=== PATIENT | male | born 1965 | race Caucasian/White ===

== ENCOUNTER 2017-12-24 12:25 | Emergency (ER) | payer BC ==
[2017-12-24 12:50] VITALS: TEMP 98.1; BMI 29.2
--- NOTE | 2017-12-24 14:51 | PDOC ---
History of Present Illness - History of Present Illness Initial Comments: 12/24/17 16:48 Mr. Sorto is a 52 yo male w/ pmh of kidney stones 4 years ago which required surgery for removal who presents with severe left abdominal and flank pain for the past week sent in by PCP for evaluation of kidney stones. He has previously been evaluated by Dr. Olmos outpatient and has 3 known kidney stones that were previously non-obstructing. Mr. Sorto has continued to be able to make urine although he reports the pain has been severe in the aforementioned locations. He reports this feels identical to his previous kidney stones. The patient denies chest pain, shortness of breath, headache and dizziness. Denies fever, chills, nausea, vomit, diarrhea and constipation. Denies frequency , urgency and hematuria. <Gunner Eden - Last Filed: 12/24/17 19:04> <Elida Shin - Last Filed: 12/24/17 19:23> - General Chief Complaint: Pain Stated Complaint: FLANK PAIN PCP SENT Time Seen by Provider: 12/24/17 14:51 Past History - Past Medical History COPD: No HTN: Yes Kidney Stones: Yes - Suicide/Smoking/Psychosocial Hx Smoking Status: No Smoking History: Former smoker Have you smoked in the past 12 months: No Number of Cigarettes Smoked Daily: 0 Information on smoking cessation initiated: No Hx Alcohol Use: Yes Drug/Substance Use Hx: No Substance Use Type: Alcohol Hx Substance Use Treatment: No <Gunner Eden - Last Filed: 12/24/17 19:04> <Elida Shin - Last Filed: 12/24/17 19:23> - Past Medical History Allergies/Adverse Reactions: Allergies Allergy/AdvReac Type Severity Reaction Status Date / Time No Known Allergies Allergy Verified 12/24/17 12:47 Home Medications: Ambulatory Orders Aspirin [ASA -] 81 mg PO PRN PRN 09/03/16 Metoprolol Succinate [Toprol XL -] 25 mg PO DAILY #30 tab.sr.24h 09/03/16 Oxycodone HCl/Acetaminophen [Percocet 5-325 mg Tablet] 1 tab PO Q6H PRN #20 tablet MDD 4 12/24/17 Review of Systems - Review of Systems Comments:: 12/24/17 16:53 GENERAL/CONSTITUTIONAL: No fever or chills. No weakness. HEAD, EYES, EARS, NOSE AND THROAT: No change in vision. No ear pain or discharge. No sore throat. CARDIOVASCULAR: No chest pain or shortness of breath RESPIRATORY: No cough, wheezing, or hemoptysis. GASTROINTESTINAL: +Abdominal and flank pain for the last week as described. No nausea, vomiting, diarrhea or constipation. GENITOURINARY: +Dysuria, no frequency or change in urination. MUSCULOSKELETAL: No joint or muscle swelling or pain. No neck or back pain. SKIN: No rash NEUROLOGIC: No headache, vertigo, loss of consciousness, or change in strength/ sensation. ENDOCRINE: No increased thirst. No abnormal weight change HEMATOLOGIC/LYMPHATIC: No anemia, easy bleeding, or history of blood clots. ALLERGIC/IMMUNOLOGIC: No hives or skin allergy. <Gunner Eden - Last Filed: 12/24/17 19:04> *Physical Exam - Vital Signs Last Vital Signs Temp Pulse Resp BP Pulse Ox 98.1 F 88 18 163/102 100 12/24/17 12:48 12/24/17 12:48 12/24/17 12:48 12/24/17 12:48 12/24/17 12:48 - Physical Exam Comments: 12/24/17 16:54 GENERAL: Awake, alert, and fully oriented, in no acute distress HEAD: No signs of trauma, normocephalic, atraumatic EYES: PERRLA, EOMI, sclera anicteric, conjunctiva clear ENT: Auricles normal inspection, hearing grossly normal, nares patent, oropharynx clear without exudates. Moist mucosa NECK: Normal ROM, supple, no lymphadenopathy, JVD, or masses LUNGS: No distress, speaks full sentences, clear to auscultation bilaterally HEART: Regular rate and rhythm, normal S1 and S2, no murmurs, rubs or gallops, peripheral pulses normal and equal bilaterally. ABDOMEN: +Acutely TTP on left flank and lower abdomen. Soft, normoactive bowel sounds. No guarding, no rebound. No masses EXTREMITIES: Normal inspection, Normal range of motion, no edema. No clubbing or cyanosis. NEUROLOGICAL: Cranial nerves II through XII grossly intact. Normal speech, normal gait, no focal sensorimotor deficits SKIN: Warm, Dry, normal turgor, no rashes or lesions noted. <Gunner Eden - Last Filed: 12/24/17 19:04> - Vital Signs Last Vital Signs Temp Pulse Resp BP Pulse Ox 98.1 F 88 18 163/102 100 12/24/17 12:48 12/24/17 12:48 12/24/17 12:48 12/24/17 12:48 12/24/17 12:48 <Elida Shin - Last Filed: 12/24/17 19:23> ED Treatment Course - LABORATORY CBC & Chemistry Diagram: 12/24/17 15:25 12/24/17 16:30 <Gunner Eden - Last Filed: 12/24/17 19:04> - LABORATORY CBC & Chemistry Diagram: 12/24/17 15:25 12/24/17 16:30 - ADDITIONAL ORDERS Additional order review: Laboratory Results 12/24/17 12/24/17 12/24/17 16:30 16:12 15:25 Sodium 140 Cancelled Potassium 4.1 D Cancelled Chloride 108 H Cancelled Carbon Dioxide 27 Cancelled Anion Gap 5 L Cancelled BUN 17 D Cancelled Creatinine 1.1 D Cancelled Creat Clearance w eGFR > 60 Cancelled Random Glucose 102 Cancelled Calcium 8.7 Cancelled Total Bilirubin 1.2 H D Cancelled AST 29 D Cancelled ALT 49 Cancelled Alkaline Phosphatase 67 Cancelled Total Protein 7.5 Cancelled Albumin 3.7 Cancelled Urine Color Yellow Urine Appearance Clear Urine pH 5.0 D Ur Specific Clemons 1.018 Urine Protein Negative Urine Glucose (UA) Negative Urine Ketones Negative Urine Blood Negative Urine Nitrite Negative Urine Bilirubin Negative Urine Urobilinogen Negative Ur Leukocyte Esterase Negative 12/24/17 15:25 RBC 4.73 D MCV 94.3 MCHC 35.7 RDW 12.9 MPV 7.3 L Neutrophils % 71.7 Lymphocytes % 16.0 D Monocytes % 11.0 H Eosinophils % 0.6 D Basophils % 0.7 D - Medications Given in the ED: ED Medications Discontinued Medications Generic Name Dose Route Start Last Admin Trade Name Freq PRN Reason Stop Dose Admin Sodium Chloride 1,000 mls @ 1,000 mls/hr 12/24/17 15:11 12/24/17 16:12 Normal Saline - IV 12/24/17 16:10 1,000 mls/hr ASDIR STA Administration Ketorolac Tromethamine 15 mg 12/24/17 15:13 12/24/17 16:10 Toradol Injection - IVPUSH 12/24/17 15:14 15 mg ONCE ONE Administration Morphine Sulfate 2 mg 12/24/17 15:10 12/24/17 16:12 Morphine Injection - IVPUSH 12/24/17 15:11 Not Given ONCE ONE Morphine Sulfate 4 mg 12/24/17 16:01 12/24/17 16:06 Morphine Injection - IVPUSH 12/24/17 16:02 4 mg ONCE ONE Administration Morphine Sulfate 4 mg 12/24/17 17:19 12/24/17 17:15 Morphine Injection - IVPUSH 12/24/17 17:20 4 mg ONCE ONE Administration <Elida Shin - Last Filed: 12/24/17 19:23> Medical Decision Making - Medical Decision Making 12/24/17 19:04 Mr. Sorto is a 52 yo male w/ pmh as described who presents for evaluation of left lower quadrant pain with associated flank pain. CT spiral ordered for evaluation r/o obstructing kidney stone. Small bilateral nonobstructing stones noted in renal poles (biggest 2mm). No hydronephrosis or obstruction noted. Patient reports some resolution of pain. Labs non-concerning as below. Discharging patient to home w/ pain control and instructions to f/u w/ Urologist and PCP later this week. Patient verbalized understanding and agreement of plan and will comply. Laboratory Results - last 24 hr 12/24/17 12/24/17 12/24/17 15:25 15:25 16:12 WBC 10.1 H D RBC 4.73 D Hgb 15.9 D Hct 44.6 D MCV 94.3 MCH 33.6 MCHC 35.7 RDW 12.9 Plt Count 337 D MPV 7.3 L Neutrophils % 71.7 Lymphocytes % 16.0 D Monocytes % 11.0 H Eosinophils % 0.6 D Basophils % 0.7 D Sodium Cancelled Potassium Cancelled Chloride Cancelled Carbon Dioxide Cancelled Anion Gap Cancelled BUN Cancelled Creatinine Cancelled Creat Clearance w eGFR Cancelled Random Glucose Cancelled Calcium Cancelled Total Bilirubin Cancelled AST Cancelled ALT Cancelled Alkaline Phosphatase Cancelled Total Protein Cancelled Albumin Cancelled Urine Color Yellow Urine Appearance Clear Urine pH 5.0 D Ur Specific Clemons 1.018 Urine Protein Negative Urine Glucose (UA) Negative Urine Ketones Negative Urine Blood Negative Urine Nitrite Negative Urine Bilirubin Negative Urine Urobilinogen Negative Ur Leukocyte Esterase Negative 12/24/17 16:30 WBC RBC Hgb Hct MCV MCH MCHC RDW Plt Count MPV Neutrophils % Lymphocytes % Monocytes % Eosinophils % Basophils % Sodium 140 Potassium 4.1 D Chloride 108 H Carbon Dioxide 27 Anion Gap 5 L BUN 17 D Creatinine 1.1 D Creat Clearance w eGFR > 60 Random Glucose 102 Calcium 8.7 Total Bilirubin 1.2 H D AST 29 D ALT 49 Alkaline Phosphatase 67 Total Protein 7.5 Albumin 3.7 Urine Color Urine Appearance Urine pH Ur Specific Clemons Urine Protein Urine Glucose (UA) Urine Ketones Urine Blood Urine Nitrite Urine Bilirubin Urine Urobilinogen Ur Leukocyte Esterase <uGnner Eden - Last Filed: 12/24/17 19:04> *DC/Admit/Observation/Transfer <Gunner Eden - Last Filed: 12/24/17 19:04> - Discharge Dispostion Admit: No <Elida Shin - Last Filed: 12/24/17 19:23> Diagnosis at time of Disposition: Nephrolithiasis - Discharge Dispostion Disposition: HOME Condition at time of disposition: Improved - Prescriptions Prescriptions: Oxycodone HCl/Acetaminophen [Percocet 5-325 mg Tablet] 1 tab PO Q6H PRN #20 tablet MDD 4 PRN Reason: Pain - Referrals Referrals: Linda Peters MD [Primary Care Provider] - - Patient Instructions Printed Discharge Instructions: DI for Kidney Stones Additional Instructions: A prescription has been called in to your pharmacy for pain control. Please take medication as proscribed for pain. Please return if any return or increase in pain, fever, chills, inability to pee, or other concerning symptoms. Follow- up with Primary care provider and urologist tomorrow as discussed. - Post Discharge Activity Forms/Work/School Notes: Back to Work
[2017-12-24] MEDS ORDERED: morphine CARPU-JECT 2 MG/1 ML DISP.SYRIN IVPUSH ONE (15:10)
[2017-12-24] MEDS ORDERED: SODIUM CHLORIDE 1,000 ML IV STA (15:11)
[2017-12-24] MEDS ORDERED: KETOROLAC TROMETHAMINE 15 MG/ML VIAL IVPUSH ONE (15:13)
[2017-12-24 15:38] LABS: BASO % 0.7 % (0-2.0); EOS % 0.6 % (0-4.5); HEMATOCRIT 44.6 % (35.4-49); HEMOGLOBIN 15.9 GM/dL (11.7-16.9); MCH 33.6 pg (25.7-33.7); MCHC 35.7 g/dl (32.0-35.9); MEAN CELL VOLUME 94.3 fl (80-96); MEAN PLT VOLUME 7.3 fl (7.5-11.1); NEUT % 71.7 % (42.8-82.8); PLATELET COUNT 337 K/MM3 (134-434); RBC 4.73 M/mm3 (4.00-5.60); RDW 12.9 % (11.9-15.9); WHITE BLOOD COUNT 10.1 K/mm3 (4.0-10.0)
[2017-12-24] MEDS ORDERED: KETOROLAC TROMETHAMINE 15 MG/ML VIAL ONE (16:01)
[2017-12-24] MEDS ORDERED: morphine CARPU-JECT 4 MG/1 ML DISP.SYRIN IVPUSH ONE ×2 (16:01→17:19)
[2017-12-24] MEDS ORDERED: morphine SULFATE 4 MG/ML VIAL ONE ×2 (16:01→17:09)
[2017-12-24 16:35] LABS: URINE APPEARANCE CLEAR; URINE BILIRUBIN NEGATIVE (<2.0 mg/dL); URINE BLOOD NEGATIVE (NEGATIVE); URINE COLOR YELLOW; URINE GLUCOSE (UA) NEGATIVE (NEGATIVE); URINE KETONE NEGATIVE (NEGATIVE); URINE LEUK ESTERASE NEGATIVE (NEGATIVE); URINE NITRITE NEGATIVE (NEGATIVE); URINE PROTEIN NEGATIVE (NEGATIVE); URINE UROBILINOGEN NEGATIVE mg/dL (0.2-1.0)
[2017-12-24 17:22] LABS: ALBUMIN 3.7 g/dl (3.4-5.0); ALK PHOS 67 U/L (45-117); ANION GAP 5 (8-16); BILIRUBIN,TOTAL 1.2 mg/dL (0.2-1.0); BLOOD UREA NITROGEN 17 mg/dL (7-18); CALCIUM 8.7 mg/dL (8.5-10.1); CHLORIDE 108 mmol/L (98-107); CO2 27 mmol/L (21-32); CREATININE 1.1 mg/dL (0.7-1.3); GLUCOSE,RANDOM 102 mg/dL (74-106); POTASSIUM 4.1 mmol/L (3.5-5.1); SGOT/AST 29 U/L (15-37); SGPT/ALT 49 U/L (12-78); SODIUM 140 mmol/L (136-145); TOT PROT 7.5 g/dl (6.4-8.2)
--- NOTE | 2017-12-24 18:27 | PDOC ---
Attending Attestation - Resident Resident Name: Gunner Eden - ED Attending Attestation I have performed the following: I have examined & evaluated the patient, The case was reviewed & discussed with the resident, I agree w/resident's findings & plan, Exceptions are as noted - HPI HPI: 12/24/17 18:24 52-year-old male history of renal stones here today complaining of left flank pain and left upper quadrant pain. Pain is similar to previous kidney stones last history of stones was years ago. Patient was seen on [facility] office last week and told that he had 3 renal calculi for which she was going to receive lithotripsy denies fevers chills no dysuria no change to bowel such as constipation or diarrhea no nausea no vomiting pain is severe no moderating factors denies any muscle skeletal back strain - Physicial Exam PE: 12/24/17 18:25 Awake alert no acute distress lungs are clear bilaterally heart is regular without any murmurs rubs or gallops abdomen is soft does have left lower quadrant tenderness to palpation no rebound no guarding left CVA tenderness skin is warm and dry no peripheral edema neuro alert and oriented 3 moving all 4 extremities - Medical Decision Making 12/24/17 18:25 Differential includes UTI, pyelonephritis, renal colic, diverticulitis plan CT abdomen and pelvis UA cultures labs and pain control will discuss with patient' s primary DrPauline Peters and Dr. luis silva Patient still having pain requiring IV pain medication. CT shows renal calculi no ureteral calculi urine is negative for blood or infection labs are unremarkable will discuss with Dr. Roberts
[2017-12-24 19:51] VITALS: BP 150/92; PULSE 80
== END 2017-12-24 19:52 | disposition home or self-care (01) ==
LOC: JER 12:25
PROC: 3E0337Z Introduction of Electrolytic and Water Balance Substance into Peripheral Vein, Percutaneous Approach (ICD-10-PCS; principal; 2017-12-24)
PROC: 3E033NZ Introduction of Analgesics, Hypnotics, Sedatives into Peripheral Vein, Percutaneous Approach (ICD-10-PCS; 2017-12-24)
PROC: 3E033NZ Introduction of Analgesics, Hypnotics, Sedatives into Peripheral Vein, Percutaneous Approach (ICD-10-PCS; 2017-12-24)
PROC: 3E0333Z Introduction of Anti-inflammatory into Peripheral Vein, Percutaneous Approach (ICD-10-PCS; 2017-12-24)
DX: N20.0 Calculus of kidney (principal); Z87.442 Personal history of urinary calculi; I10 Essential (primary) hypertension; Z87.891 Personal history of nicotine dependence
CPT/HCPCS: 36415; 74176; 80053; 81003; 85025; 87086; 99282-25; J7030

== ENCOUNTER 2018-01-15 01:49 | Observation (INO) | payer BC ==
--- NOTE | 2018-01-15 01:53 | PDOC ---
History of Present Illness - General Chief Complaint: Chest Pain Stated Complaint: CHEST PAIN Time Seen by Provider: 01/15/18 01:50 - History of Present Illness Initial Comments: 01/15/18 02:23 This 52-year-old man with a history of HTN/HLD /kidney stones/gout presents with a few hour history of left-sided chest pain. Pain described as intermittent in severity but present constantly and has a mild pulsatile quality when severe. No previous history of this pain. Patient states that he had very mild dull pain in the left side of his chest when he arrived home from work at 6:30 PM last night. No treatment was taken; patient retired at usual hour but was awakened about 2 hours prior to presentation with much more severe pain in the same area. No recent cough or febrile illness. No history of nausea/diaphoresis/shortness of breath. He has intermittent increase in pain with deep breathing ( especially when patient has lying flat); also occasionally radiating to mid upper back. No recent trauma to chest or increase in strenuous activity. No change in diet or recent nausea/vomiting/ diarrhea. No flank pain/dysuria/hematuria. Risk factors for CAD: Positive for HTN/HLD/family history (mother). No smoking/ DM No recent immobility/surgeries/malignancy/lower extremity pain or edema;No hx thromboembolic disease in pt or family PMH HTN-diagnosed 3-4 years ago; taking med as prescribed HLD-diet controlled Recent episode of kidney stones(approximately 3 weeks ago) No recent gout Right sided cataract surgery September, No known ALLERGIES Patient never smoked; ethanol occasionally (beer); denies any other drug use Patient's PMD is Dr. 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 Past History - Past Medical History Allergies/Adverse Reactions: Allergies Allergy/AdvReac Type Severity Reaction Status Date / Time No Known Allergies Allergy Verified 01/15/18 01:50 Home Medications: Ambulatory Orders Nebivolol HCl [Bystolic] 10 mg PO DAILY 01/15/18 COPD: No HTN: Yes Kidney Stones: Yes - Suicide/Smoking/Psychosocial Hx Smoking Status: No Smoking History: Former smoker Have you smoked in the past 12 months: No Number of Cigarettes Smoked Daily: 0 Hx Alcohol Use: Yes Drug/Substance Use Hx: No Substance Use Type: Alcohol Hx Substance Use Treatment: No Review of Systems - Review of Systems Able to Perform ROS?: Yes Comments:: 12 point review of systems is negative except for what is noted in the history of present illness *Physical Exam - Vital Signs Last Vital Signs Temp Pulse Resp BP Pulse Ox 97.8 F 65 18 146/77 97 01/15/18 04:13 01/15/18 04:13 01/15/18 04:19 01/15/18 04:13 01/15/18 04:44 - Physical Exam Comments: GENERAL: Adult male, in mild distress secondary to left-sided chest pain; blood pressure 192/105, HR 78/min, pulse ox 100% on room air,RR20/min HEAD: Normal with no signs of trauma. EYES: PERRLA, EOMI, sclera anicteric, conjunctiva clear. ENT: Ears normal, nares patent, oropharynx clear without exudates. Dry mucous membranes. NECK: Normal range of motion, supple without lymphadenopathy, JVD, or masses. LUNGS: Breath sounds equal, clear to auscultation bilaterally. No wheezes, rubs or crackles. CHEST WALL: No tenderness/crepitus/step offs HEART:Regular rate and rhythm, normal S1 and S2 without murmur, rub or gallop. ABDOMEN:.normal bowel sounds No guarding,tenderness or rebound.No masses No distention. EXTREMITIES: Normal range of motion, no edema. No clubbing or cyanosis. No erythema, or tenderness. NEUROLOGICAL: Cranial nerves II through XII grossly intact. Normal speech. No focal neurological deficits. MUSCULOSKELETAL: Back non-tender to palpation, no CVA tenderness SKIN: Warm, Dry, normal turgor, no rashes or lesions noted. 12-lead electrocardiogram is performed and interpreted by me: Normal sinus rhythm at 72 bpm; minimal voltage criteria for LVH; no acute ST or T-wave abnormalities evident. Tracing is essentially unchanged from previous EKG dated 11/03/13 Portable chest x-ray shows no evidence of acute infiltrate/CHF/effusion; cardiac silhouette/mediastinum normal Heart Score/ECG Review - History History: Moderately suspicious - Electrocardiogram EKG: Normal - Age Age: 45-65 - Risk Factors Risk Factors Heart Score: Yes Hx Hypercholesterolemia, Yes Hx Hypertension, Yes Positive family hx of cardiac disease Based on the list above the patient has:: >/=3 risk factors or Hx atherosclerotic disease - Troponin Troponin: </= normal limit - Score Heart Score - Total: 4 ED Treatment Course - LABORATORY CBC & Chemistry Diagram: 01/15/18 01:51 01/15/18 01:51 - ADDITIONAL ORDERS Additional order review: Laboratory Results 01/15/18 01/15/18 01:51 01:51 PT with INR 12.30 INR 1.09 Sodium 137 Potassium 4.3 Chloride 102 Carbon Dioxide 25 Anion Gap 10 BUN 15 Creatinine 1.1 Creat Clearance w eGFR > 60 Random Glucose 107 H Calcium 9.3 Total Bilirubin 1.3 H AST 32 ALT 51 Alkaline Phosphatase 72 Creatine Kinase 128 Troponin I < 0.02 Total Protein 8.3 H Albumin 4.1 01/15/18 01:51 RBC 4.60 MCV 94.4 MCHC 35.6 RDW 12.4 MPV 7.0 L Neutrophils % 63.5 Lymphocytes % 22.2 D Monocytes % 11.6 H Eosinophils % 1.5 D Basophils % 1.2 - RADIOLOGY Radiology Studies Ordered: Category Date Time Status CHEST X-RAY PORTABLE* [RAD] Stat Radiology 01/15/18 02:01 Taken - Medications Given in the ED: ED Medications Discontinued Medications Generic Name Dose Route Start Last Admin Trade Name Freq PRN Reason Stop Dose Admin Famotidine 20 mg in 12 mls @ 144 mls/hr 01/15/18 03:06 01/15/18 03:10 Pepcid 20 Mg/12 Ml Push IVPB 01/15/18 03:10 144 mls/hr ONCE ONE Administration Ketorolac Tromethamine 30 mg 01/15/18 03:19 01/15/18 03:24 Toradol Injection - IVPUSH 01/15/18 03:20 30 mg ONCE ONE Administration Morphine Sulfate 4 mg 01/15/18 02:09 01/15/18 02:18 Morphine Injection - IVPUSH 01/15/18 02:10 4 mg ONCE ONE Administration Nitroglycerin 0.4 mg 01/15/18 03:39 01/15/18 03:40 Nitrostat - SL 01/15/18 03:40 0.4 mg ONCE ONE Administration Progress Note - Progress Note Progress Note: This 52-year-old man with a history of hypertension/hyperlipidemia/family history of cardiac disease presents with several hour history of left-sided chest pain as noted above. Exam as noted CBC/INR/chemistry profile with troponin sent. Patient received 2 L/min" to nasal cannula Patient received 4 mg morphine IV with some relief but ultimately had recurrence of pain. Toradol 30 mg IV/nitroglycerin 0.4 mg SL/Pepcid 20 mg IV were also administered without significant relief of his pain. Laboratory evaluation was essentially normal with no elevation of troponin Medical Decision Making - Medical Decision Making 01/15/18 04:[address] Arnold of [facility] service: Patient will be admitted to telemetry observation status for chest pain/rule out myocardial infarction *DC/Admit/Observation/Transfer Diagnosis at time of Disposition: Chest pain Qualifiers: Chest pain type: precordial pain Qualified Code(s): R07.2 - Precordial pain - Discharge Dispostion Condition at time of disposition: Guarded Admit: Yes Decision to Admit order Date/Time: Decision to Admit Order Category Date Time Status Decision to Admit to Hospital Routine Admission 01/15/18 04:14 Active - Referrals - Patient Instructions - Post Discharge Activity
[2018-01-15] MEDS ORDERED: morphine CARPU-JECT 4 MG/1 ML DISP.SYRIN IVPUSH ONE (02:09)
[2018-01-15 02:26] VITALS: BMI 29.2
[2018-01-15 02:49] LABS: BASO % 1.2 % (0-2.0); EOS % 1.5 % (0-4.5); HEMATOCRIT 43.4 % (35.4-49); HEMOGLOBIN 15.4 GM/dL (11.7-16.9); LYMPH % 22.2 % (8-40); MCH 33.6 pg (25.7-33.7); MCHC 35.6 g/dl (32.0-35.9); MEAN CELL VOLUME 94.4 fl (80-96); MONO % 11.6 % (3.8-10.2); NEUT % 63.5 % (42.8-82.8); PLATELET COUNT 293 K/MM3 (134-434); RDW 12.4 % (11.9-15.9)
[2018-01-15 03:02] LABS: INR 1.09 (0.82-1.09); PROTHROMBIN TIME (PATIENT) 12.3 SEC (9.7-13.0)
[2018-01-15] MEDS ORDERED: FAMOTIDINE 20 MG/50 ML IVPB 20 MG/50 ML MG IVPB ONE (03:06)
[2018-01-15] MEDS ORDERED: FAMOTIDINE IV 20 MG/12 ML VIAL IVPB ONE (03:06)
[2018-01-15] MEDS ORDERED: KETOROLAC TROMETHAMINE 30 MG/1 ML VIAL IVPUSH ONE ×3 (03:19→18:45)
[2018-01-15] MEDS ORDERED: KETOROLAC TROMETHAMINE 30 MG/1 ML VIAL ONE (03:20)
[2018-01-15 03:26] LABS: ALBUMIN 4.1 g/dl (3.4-5.0); ANION GAP 10 (8-16); BILIRUBIN,TOTAL 1.3 mg/dL (0.2-1.0); BLOOD UREA NITROGEN 15 mg/dL (7-18); CALCIUM 9.3 mg/dL (8.5-10.1); CHLORIDE 102 mmol/L (98-107); CO2 25 mmol/L (21-32); CREATININE 1.1 mg/dL (0.7-1.3); GLUCOSE,RANDOM 107 mg/dL (74-106); POTASSIUM 4.3 mmol/L (3.5-5.1); SGOT/AST 32 U/L (15-37); SGPT/ALT 51 U/L (12-78); SODIUM 137 mmol/L (136-145); TOT PROT 8.3 g/dl (6.4-8.2)
[2018-01-15 03:28] LABS: ALK PHOS 72 U/L (45-117)
[2018-01-15] MEDS ORDERED: NITROGLYCERIN SUBLINGUAL 1/150 0.4 MG TAB SL ONE (03:39)
[2018-01-15] MEDS ORDERED: NITROGLYCERIN SUBLINGUAL 1/150 0.4 MG TAB ONE (03:39)
[2018-01-15 08:36] LABS: CHOLESTEROL 197 mg/dl; HDL CHOLESTEROL 39 mg/dl (29-89); LDL CHOLESTEROL (ONLY DFH) 106 mg/dl; TRIGLYCERIDES 260 mg/dl (35-160)
--- NOTE | 2018-01-15 08:58 | HP ---
CHIEF COMPLAINT: left sided chest pain PCP: Dr Peters HISTORY OF PRESENT ILLNESS: patient is a 52 y/o male with a past medical history of hypertension, diet controlled hyperlipidemia, and renal calculi. patient reports yesterday evening he was asleep and awakened by a squeezing sensation to the left side of his chest. Patient report the chest discomfort was unresolved with movement and was persistent throughout the evening. He reports the chest discomfort was unrelieved and was intermittent. Patient denies any shortness of breath or syncopal episode. 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 with at home Smoking:none Alcohol:none Drugs: none Family History: mother-->, lung CA, angina father-->, cancer (unknown) Allergies No Known Allergies Allergy (Verified 01/15/18 01:50) HOME MEDICATIONS: Home Medications Medication Instructions Recorded Nebivolol HCl [Bystolic] 10 mg PO DAILY 01/15/18 REVIEW OF SYSTEMS CONSTITUTIONAL: Absent: fever, chills, diaphoresis, generalized weakness, malaise, loss of appetite, weight change HEENT: Absent: rhinorrhea, nasal congestion, throat pain, throat swelling, difficulty swallowing, mouth swelling, ear pain, eye pain, visual changes CARDIOVASCULAR: Present: chest pain Absent: syncope, palpitations, irregular heart rate, lightheadedness, peripheral edema RESPIRATORY: Absent: cough, shortness of breath, dyspnea with exertion, orthopnea, wheezing, stridor, hemoptysis GASTROINTESTINAL: Absent: abdominal pain, abdominal distension, nausea, vomiting, diarrhea, constipation, melena, hematochezia GENITOURINARY: Absent: dysuria, frequency, urgency, hesitancy, hematuria, flank pain, genital pain MUSCULOSKELETAL: Absent: myalgia, arthralgia, joint swelling, back pain, neck pain SKIN: Absent: rash, itching, pallor HEMATOLOGIC/IMMUNOLOGIC: Absent: easy bleeding, easy bruising, lymphadenopathy, frequent infections ENDOCRINE: Absent: unexplained weight gain, unexplained weight loss, heat intolerance, cold intolerance NEUROLOGIC: Absent: headache, focal weakness or paresthesias, dizziness, unsteady gait, seizure, mental status changes, bladder or bowel incontinence PSYCHIATRIC: Absent: anxiety, depression, suicidal or homicidal ideation, hallucinations. PHYSICAL EXAMINATION Vital Signs - 24 hr 01/15/18 01/15/18 01/15/18 02:19 02:28 02:38 Temperature 97.9 F Pulse Rate 78 Pulse Rate [ 78 71 Left] Respiratory 20 20 18 Rate Blood Pressure 192/105 Blood Pressure 165/98 140/94 [Left] O2 Sat by Pulse 100 99 99 Oximetry (%) 01/15/18 01/15/18 01/15/18 04:13 04:19 04:44 Temperature 97.8 F Pulse Rate 65 Pulse Rate [ Left] Respiratory 19 18 Rate Blood Pressure 146/77 Blood Pressure [Left] O2 Sat by Pulse 99 97 Oximetry (%) 01/15/18 01/15/18 07:44 07:45 Temperature Pulse Rate 68 Pulse Rate [ Left] Respiratory 16 16 Rate Blood Pressure Blood Pressure [Left] O2 Sat by Pulse 98 Oximetry (%) GENERAL: Awake, alert, and fully oriented, in no acute distress. HEAD: Normal with no signs of trauma. EYES: Pupils equal, round and reactive to light, extraocular movements intact, sclera anicteric, conjunctiva clear. No lid lag. EARS, NOSE, THROAT: Ears normal, nares patent, oropharynx clear without exudates. Moist mucous membranes. NECK: Normal range of motion, supple without lymphadenopathy, JVD, or masses. LUNGS: Breath sounds equal, clear to auscultation bilaterally. No wheezes, and no crackles. No accessory muscle use. HEART: Regular rate and rhythm, normal S1 and S2 without murmur, rub or gallop. ABDOMEN: Soft, nontender, not distended, normoactive bowel sounds, no guarding, no rebound, no masses. No hepatomegaly or splenomegaly. MUSCULOSKELETAL: Normal range of motion at all joints. No bony deformities or tenderness. No CVA tenderness. UPPER EXTREMITIES: 2+ pulses, warm, well-perfused. No cyanosis. No clubbing. No peripheral edema. LOWER EXTREMITIES: 2+ pulses, warm, well-perfused. No calf tenderness. No peripheral edema. NEUROLOGICAL: Cranial nerves II-XII intact. Normal speech. Normal gait. PSYCHIATRIC: Cooperative. Good eye contact. Appropriate mood and affect. SKIN: Warm, dry, normal turgor, no rashes or lesions noted, normal capillary refill. Laboratory Results - last 24 hr 01/15/18 01/15/18 01/15/18 01:51 01:51 01:51 WBC 8.0 RBC 4.60 Hgb 15.4 Hct 43.4 MCV 94.4 MCH 33.6 MCHC 35.6 RDW 12.4 Plt Count 293 MPV 7.0 L Neutrophils % 63.5 Lymphocytes % 22.2 D Monocytes % 11.6 H Eosinophils % 1.5 D Basophils % 1.2 PT with INR 12.30 INR 1.09 Sodium 137 Potassium 4.3 Chloride 102 Carbon Dioxide 25 Anion Gap 10 BUN 15 Creatinine 1.1 Creat Clearance w eGFR > 60 Random Glucose 107 H Calcium 9.3 Magnesium Total Bilirubin 1.3 H AST 32 ALT 51 Alkaline Phosphatase 72 Creatine Kinase 128 Troponin I < 0.02 Total Protein 8.3 H Albumin 4.1 Triglycerides Cholesterol Total LDL Cholesterol HDL Cholesterol 01/15/18 01/15/18 07:35 07:35 WBC RBC Hgb Hct MCV MCH MCHC RDW Plt Count MPV Neutrophils % Lymphocytes % Monocytes % Eosinophils % Basophils % PT with INR INR Sodium Potassium Chloride Carbon Dioxide Anion Gap BUN Creatinine Creat Clearance w eGFR Random Glucose Calcium Magnesium 1.9 Total Bilirubin AST ALT Alkaline Phosphatase Creatine Kinase Troponin I Total Protein Albumin Triglycerides 260 H Cholesterol 197 Total LDL Cholesterol 106 HDL Cholesterol 39 ASSESSMENT/PLAN: 1) cardiovascular chest pain r/o acs -troponin x 2 wnl, pending 3rd, continous telemetry monitoring - pt reports chest discomfort during exam, he report the discomfort as a "grabbing" sensation to the his chest, discomfort is not reproducible upon exam , nitro 1/2 inch ordered w/asa 325mg - continue asa 81mg daily - appreciate cardiology input message left with litigation legal secretary to return phone call. hypertension - b/p slightly above goal 154/83, ntg ordered, strict monitoring q4h hyperlipidemia - diet controlled, lipid profile noted f/e/n - low sodium, cholesterol diet ppx - oob dispo: pt requires observation telemetry Visit type - Emergency Visit Emergency Visit: Yes ED Registration Date: 01/15/18 Care time: The patient presented to the Emergency Department on the above date and was hospitalized for further evaluation of their emergent condition. - New Patient This patient is new to me today: Yes Date on this admission: 05/01/18 - Critical Care Critical Care patient: No Hospitalist Screening - Colonoscopy Questionnaire Colonoscopy Questionnaire: Colonoscopy Questionnaire - Patient: 50 - 75 years old and never had a screening colonoscopy: No History of colon or rectal polyps, or CA: No History of IBD, Crohn's disease or UC: No History of abdominal radiation therapy as a child: No - Relative: 1 with colon or rectal CA, or polyps at age 60 or younger: No Colon or rectal CA diagnosed at age 45 or younger: No Multiple relatives with colon or rectal CA: No - Outcome: Screening Result: Negative Screen
[2018-01-15] MEDS ORDERED: ASPIRIN 325 MG TABLET PO ONE (09:45)
[2018-01-15] MEDS ORDERED: NITROGLYCERIN 2% OINTMENT - 1GM PACKET TD ONE (09:45)
[2018-01-15] MEDS ORDERED: ASPIRIN 81 MG CHEWABLE TABLETS PO SCH (10:00)
[2018-01-15] MEDS: NEBIVOLOL 10 MG TABLET (FP) PO SCH (12:15)
--- NOTE | 2018-01-15 12:53 | EKG ---
Test Reason : Blood Pressure : / mmHG Vent. Rate : 066 BPM Atrial Rate : 066 BPM P-R Int : 154 ms QRS Dur : 084 ms QT Int : 408 ms P-R-T Axes : 020 -03 001 degrees QTc Int : 427 ms NORMAL SINUS RHYTHM MINIMAL VOLTAGE CRITERIA FOR LVH, MAY BE NORMAL VARIANT BORDERLINE ECG WHEN COMPARED WITH ECG OF 18-MAR-2011 21:08, NO SIGNIFICANT CHANGE WAS FOUND Confirmed by Brandon Sebastian ([id number]) on 01/15/2018 12:52:51 PM Referred By: Confirmed By:Brandon Sebastian
--- NOTE | 2018-01-15 13:06 | CON.CARD ---
Consult Consult Specialty:: Cardiology Referred by:: Hospitalist Reason for Consultation:: Cardiac evaluation - History of Present Illness Chief Complaint: Chest pain History of Present Illness: Patient is a 52 year old male with underlying history of hypertension who presents with sudden onset of left sided chest pain described as sharp and also back pain. He denies shortness of breath or palpitations. He denies paroxysmal nocturnal dyspnea or orthopnea. He denies fever or chills. He denies cough or expectorations. He denies nausea, vomiting, diarrhea or abdominal pain. He denies headache or lightheadedness. Denies syncope. - History Source History Provided By: Patient, Medical Record - Past Medical History Cardio/Vascular: Yes: HTN Renal/: Yes: Renal Calculi - Past Surgical History Past Surgical History: Yes: Cataract Removal Additional Surgical History: Knee surgery for ACL and shoulder surgery for rotator cuff - Alcohol/Substance Use Hx Alcohol Use: Yes (social) History of Substance Use: reports: None - Smoking History Smoking history: Never smoked Have you smoked in the past 12 months: No Aproximately how many cigarettes per day: 0 Home Medications - Allergies Allergies/Adverse Reactions: Allergies Allergy/AdvReac Type Severity Reaction Status Date / Time No Known Allergies Allergy Verified 01/15/18 01:50 - Home Medications Home Medications: Ambulatory Orders Nebivolol HCl [Bystolic] 10 mg PO DAILY 01/15/18 Review of Systems - Review of Systems Constitutional: denies: Chills, Fever Cardiovascular: reports: Chest Pain. denies: Palpitations, Shortness of Breath Gastrointestinal: denies: Abdominal Pain, Constipation, Diarrhea, Melena, Nausea , Rectal Bleeding, Vomiting Genitourinary: denies: Dysuria, Hematuria Musculoskeletal: reports: Back Pain Neurological: denies: Dizziness, Headache, Seizure, Syncope, Weakness Vital Signs: Vital Signs Temperature 97.8 F 01/15/18 04:13 Pulse Rate 68 01/15/18 07:44 Respiratory Rate 16 01/15/18 07:45 Blood Pressure 146/77 01/15/18 04:13 O2 Sat by Pulse Oximetry (%) 98 01/15/18 07:45 Eyes: Yes: PERRL HENT: Yes: Atraumatic Neck: Yes: Supple Respiratory: Yes: CTA Bilaterally Gastrointestinal: Yes: Normal Bowel Sounds, Soft. No: Tenderness Cardiovascular: Yes: Regular Rate and Rhythm JVD: No Carotid Bruit: No PMI: Non-Displaced Heart Sounds: Yes: S1, S2. No: Gallop Murmur: No: Systolic Murmur, Diastolic Murmur Edema: No - Other Data Labs, Other Data: CBC, BMP 01/15/18 01:51 01/15/18 01:51 INR, PTT INR 1.09 (0.82-1.09) 01/15/18 01:51 Troponin, BNP 01/15/18 01/15/18 01:51 07:35 Troponin I < 0.02 < 0.03 Laboratory Results - last 24 hr 01/15/18 01/15/18 01/15/18 01:51 01:51 01:51 WBC 8.0 RBC 4.60 Hgb 15.4 Hct 43.4 MCV 94.4 MCH 33.6 MCHC 35.6 RDW 12.4 Plt Count 293 MPV 7.0 L Neutrophils % 63.5 Lymphocytes % 22.2 D Monocytes % 11.6 H Eosinophils % 1.5 D Basophils % 1.2 PT with INR 12.30 INR 1.09 Sodium 137 Potassium 4.3 Chloride 102 Carbon Dioxide 25 Anion Gap 10 BUN 15 Creatinine 1.1 Creat Clearance w eGFR > 60 Random Glucose 107 H Calcium 9.3 Magnesium Total Bilirubin 1.3 H AST 32 ALT 51 Alkaline Phosphatase 72 Creatine Kinase 128 Troponin I < 0.02 Total Protein 8.3 H Albumin 4.1 Triglycerides Cholesterol Total LDL Cholesterol HDL Cholesterol 01/15/18 01/15/18 01/15/18 07:35 07:35 07:35 WBC RBC Hgb Hct MCV MCH MCHC RDW Plt Count MPV Neutrophils % Lymphocytes % Monocytes % Eosinophils % Basophils % PT with INR INR Sodium Potassium Chloride Carbon Dioxide Anion Gap BUN Creatinine Creat Clearance w eGFR Random Glucose Calcium Magnesium 1.9 Total Bilirubin AST ALT Alkaline Phosphatase Creatine Kinase Troponin I < 0.03 Total Protein Albumin Triglycerides 260 H Cholesterol 197 Total LDL Cholesterol 106 HDL Cholesterol 39 Normal sinus rhythm Imaging - Results Chest X-ray: Report Reviewed (Unremarkable) EKG: Report Reviewed Problem List - Problems (1) HTN (hypertension) Code(s): I10 - ESSENTIAL (PRIMARY) HYPERTENSION Qualifiers: Hypertension type: essential hypertension Qualified Code(s): I10 - Essential (primary) hypertension (2) Hypertriglyceridemia Code(s): E78.1 - PURE HYPERGLYCERIDEMIA (3) Chest pain Code(s): R07.9 - CHEST PAIN, UNSPECIFIED Qualifiers: Chest pain type: precordial pain Qualified Code(s): R07.2 - Precordial pain Assessment/Plan 1. Chest pain syndrome, atypical, etiology to be determined, ? musculoskeletal 2. Hypertension PLAN: 1. Serial cardiac enzymes 2. Transthoracic echocardiography to assess LV/RV and valvular function 3. Continue Bystolic 10 mg once a day. 4. ASA 81 mg once a day 5. Further work up to follow including possible stress testing (perhaps stress echo) if troponins are negative. Check D-dimer and if positive consider CT chest Further plans are to follow Aldo Naylor MD
[2018-01-15] MEDS ORDERED: ONDANSETRON 4 MG/2 ML VIAL IVPUSH ONE (18:45)
[2018-01-15] MEDS ORDERED: FAMOTIDINE 20 MG/50 ML IVPB 20 MG/50 ML MG IVPB SCH (19:30)
--- NOTE | 2018-01-16 06:38 | PN ---
Progress Note (short form) - Note Progress Note: Chief Complaint: Events noted, notes reviewed, denies any further chest pain, denies any dyspnea, orthopnea or PND History of Present Illness: Seen and examined. Events noted, notes reviewed, denies any further chest pain, denies any dyspnea, orthopnea or PND Echocardiography study completed report not available Plan to proceed with MPI study today Lipid profile noted Medications: Current Medications Aspirin (Asa -) 81 mg PO DAILY [facility] Famotidine/Sodium Chloride (Pepcid 20 Mg Premixed Ivpb -) 20 mg in 50 mls @ 100 mls/hr IVPB DAILY [facility] Last Admin: 01/15/18 19:33 Dose: 100 mls/hr Nebivolol (Bystolic -) 10 mg PO DAILY [facility] Last Admin: 01/15/18 12:15 Dose: 10 mg Review of Systems - Review of Systems Constitutional: denies: Chills, Fever Cardiovascular: As noted above Respiratory: denies: Cough, Hemoptysis, Orthopnea, PND, SOB on Exertion Gastrointestinal: denies: Abdominal Pain, Constipation, Diarrhea, Melena, Nausea , Rectal Bleeding, Vomiting Genitourinary: denies: Dysuria, Hematuria Musculoskeletal: denies: Joint Pain Neurological: denies: Dizziness, Headache, Parasthesia, Seizure, Tremors, Unsteady Gait, Weakness Vital Signs: Last Vital Signs Temp Pulse Resp BP Pulse Ox 98.0 F 65 18 118/73 98 01/16/18 06:00 01/16/18 06:00 01/16/18 06:00 01/16/18 06:00 01/16/18 06:00 Intake & Output 01/13/18 01/14/18 01/15/18 01/16/18 23:59 23:59 23:59 23:59 Intake Total 1385 Output Total 1 Balance 1384 Weight 210 lb Constitutional: Well Nourished HENT: Atraumatic Neck: Supple Negative JVD No Bruit Respiratory: CTA Bilaterally Cardiovascular: S1 S2 Regular Rate and Rhythm No Murmurs Gastrointestinal: Soft Benign Normal Bowel Sounds Ext: No Edema Labs: CBC, BMP 01/15/18 01:51 01/15/18 01:51 Troponin, BNP 01/15/18 01/15/18 07:35 13:40 Troponin I < 0.03 < 0.03 Hepatic Panel Total Bilirubin 1.3 mg/dL (0.2-1.0) H 01/15/18 01:51 AST 32 U/L (15-37) 01/15/18 01:51 ALT 51 U/L (12-78) 01/15/18 01:51 Alkaline Phosphatase 72 U/L (45-117) 01/15/18 01:51 Albumin 4.1 g/dl (3.4-5.0) 01/15/18 01:51 INR, PTT INR 1.09 (0.82-1.09) 01/15/18 01:51 Assessment/Plan ASSESSMENT: 1. Chest pain syndrome - atypical for CAD angina pectoris but to be excluded 2. Hypertension 3. Hypercholesterolemia PLAN: 1. Continue Bystolic 2. Add statins, Crestor 3. Continue ASA 4. Obtain report of echocardiography 5. To proceed with MPI study today as planned 6. Counselled life style modification Matt Ford MD
[2018-01-16] MEDS ORDERED: ONDANSETRON 4 MG/2 ML VIAL IVPB ONE (09:00)
[2018-01-16] MEDS ORDERED: PANTOPRAZOLE SODIUM 40 MG VIAL IVPUSH ONE (09:00)
--- NOTE | 2018-01-16 10:30 | PN ---
Physical Exam: SUBJECTIVE: Patient seen and examined, reports intermittent chest discomfort relieved with toradol, reports one episode of nausea, denies any shortness of breath or dyspnea upon exertion. OBJECTIVE: patient is a 52 y/o male with a past medical history of hypertension , diet controlled hyperlipidemia, and renal calculi. Vital Signs Period Temp Pulse Resp BP Sys/Harrison Pulse Ox Last 24 Hr 97.7 F-98.0 F 63-72 15-18 118-134/67-79 96-98 GENERAL: The patient is awake, alert, and fully oriented, in no acute distress. HEAD: Normal with no signs of trauma. EYES: PERRL, extraocular movements intact, sclera anicteric, conjunctiva clear. No ptosis. ENT: Ears normal, nares patent, oropharynx clear without exudates, moist mucous membranes. NECK: Trachea midline, full range of motion, supple. LUNGS: Breath sounds equal, clear to auscultation bilaterally, no wheezes, no crackles, no accessory muscle use. HEART: Regular rate and rhythm, S1, S2 without murmur, rub or gallop. ABDOMEN: Soft, nontender, nondistended, normoactive bowel sounds, no guarding, no rebound, no hepatosplenomegaly, no masses. EXTREMITIES: 2+ pulses, warm, well-perfused, no edema. NEUROLOGICAL: Cranial nerves II through XII grossly intact. Normal speech, gait not observed. PSYCH: Normal mood, normal affect. SKIN: Warm, dry, normal turgor, no rashes or lesions noted Laboratory Results - last 24 hr 01/15/18 01/15/18 01/15/18 07:35 13:40 13:40 D-Dimer Hemoglobin A1c % 6.0 Creatine Kinase 84 Troponin I < 0.03 01/15/18 13:40 D-Dimer 440 Hemoglobin A1c % Creatine Kinase Troponin I Active Medications Generic Name Dose Route Start Last Admin Trade Name Freq PRN Reason Stop Dose Admin Aspirin 81 mg 01/16/18 10:00 Asa - PO DAILY [facility] Nebivolol 10 mg 01/15/18 12:00 01/15/18 12:15 Bystolic - PO 10 mg DAILY [facility]INA Administration Pantoprazole Sodium 40 mg 01/17/18 10:00 Protonix Iv IVPUSH DAILY [facility] IMAGING CXR: no acute pathology ct of abd/pelvis w/oral contrast: bilateral nephrolithasis, with diffuse fatty liver infilitration, no hyrdronephrosis, no hiatal hernia echo: LV wnl ASSESSMENT/PLAN: 1) cardiovascular chest pain r/o acs -troponin x 3 wnl, d-dimmer wnl, no event on telemetry monitoring noted. - chest diiscomfort unlikely acs, toradol x 2 with relief - pending stress test today - continue asa 81mg qd - cardiology consulted and followed hypertension - b/p at goal, continue bystolic, strict monitoring q4h hyperlipidemia - diet controlled, lipid profile noted, ct of abd notable for diffuse fatty liver infiltration, start lipitor 2) GI GERD - pt report a history of GERD in past, nausea and burning sensation to throat was reported on exam, will start protonix f/e/n - low sodium, cholesterol diet ppx - oob dispo: pt requires observation telemetry Visit type - Emergency Visit Emergency Visit: Yes ED Registration Date: 01/15/18 Care time: The patient presented to the Emergency Department on the above date and was hospitalized for further evaluation of their emergent condition. - New Patient This patient is new to me today: No - Critical Care Critical Care patient: No - Discharge Referral Referred to [facility] Med P.C.: No
[2018-01-16] MEDS: ASPIRIN 81 MG CHEWABLE TABLETS PO SCH (16:04)
[2018-01-16] MEDS: NEBIVOLOL 10 MG TABLET (FP) PO SCH (16:04)
--- NOTE | 2018-01-16 19:14 | HOSP ---
Subjective - Review of Symptoms Events since last encounter: Reviewed results of stress testing this afternoon, small-sized mild intensity inferior basal reversible perfusion defect consistent with ischemia; EF 63%. Called and spoke with Dr. Ford and informed him of results. Ordered troponin x 3, CXR, stat ECG. Spoke with Dr. Kothari. She will evaluate the patient. Advised by ZABRINA Plunkett that Dr. Ford called her and discussed the patient. Physical Examination Vital Signs: Vital Signs Temperature 98.0 F 01/16/18 06:00 Pulse Rate 65 01/16/18 06:00 Respiratory Rate 18 01/16/18 06:00 Blood Pressure 118/73 01/16/18 06:00 O2 Sat by Pulse Oximetry (%) 98 01/16/18 06:00 Labs: CBC, BMP 01/15/18 01:51 01/15/18 01:51
--- NOTE | 2018-01-16 19:44 | ED.PROV ---
Physicial Exam I saw and examined the patient. I was called to the floor to evaluate this patient who is a 52-year-old male admitted for chest pain rule out [facility]. Patient was admitted approximately 40 hours ago and his troponin has been negative to date. Patient has been entered experiencing intermittent chest pain since he got here. Patient said the pain is unchanged from prior. Patient said it is comes and goes but seems to be here more than on. Patient describes the pain as a pressure. Patient said it's worse when he lays down and better when he sits up. Patient can cite any event that will make the pain go away or trigger the pain if it's on. Patient denies any associated shortness of breath, nausea, diaphoresis, radiation or any other symptoms. Patient had the pain at the time of my evaluation. Patient had a cardiogram that was done just prior to my arrival that was unchanged from his admission cardiogram. The troponin is still pending. Patient had a chest x-ray that was negative for any acute pathology and unchanged from his admission x-ray. Exam: GENERAL: The patient is awake, alert, and fully oriented, in no acute distress. HEAD: Normal with no signs of trauma. EYES: Pupils equal, round and reactive to light, extraocular movements intact, sclera anicteric, conjunctiva clear. ENT: Moist mucous membranes. NECK: Normal range of motion, supple without lymphadenopathy, JVD, or masses. LUNGS: Breath sounds equal, clear to auscultation bilaterally. No wheezes, and no crackles. HEART: Regular rate and rhythm, normal S1 and S2 without murmur, rub or gallop. ABDOMEN: Soft, nontender, normoactive bowel sounds. No guarding, no rebound. No masses EXTREMITIES:Normal range of motion, no edema. No clubbing or cyanosis. No cords , erythema, or tenderness. NEUROLOGICAL: Cranial nerves II through XII grossly intact. Normal speech, PSYCH: Normal mood, normal affect SKIN: Warm, Dry, normal turgor, no rashes or lesions noted. - Vital Signs Last Vital Signs Temp Pulse Resp BP Pulse Ox 98.0 F 65 18 118/73 98 01/16/18 06:00 01/16/18 06:00 01/16/18 06:00 01/16/18 06:00 01/16/18 06:00
--- NOTE | 2018-01-16 19:52 | EKG ---
Test Reason : Blood Pressure : / mmHG Vent. Rate : 072 BPM Atrial Rate : 072 BPM P-R Int : 152 ms QRS Dur : 070 ms QT Int : 378 ms P-R-T Axes : 029 -01 008 degrees QTc Int : 413 ms NORMAL SINUS RHYTHM MINIMAL VOLTAGE CRITERIA FOR LVH, MAY BE NORMAL VARIANT BORDERLINE ECG WHEN COMPARED WITH ECG OF 18-MAR-2011 21:08, T WAVE AMPLITUDE HAS INCREASED IN ANTERIOR LEADS QT HAS SHORTENED Confirmed by ANSHU TREJO, MARGE ([id number]) on 01/16/2018 7:52:08 PM Referred By: MD MOFFETT Confirmed By:MARGE BRASHER MD
[2018-01-16] MEDS ORDERED: ROSUVASTATIN CA 20 MG TABLET (FP) PO SCH (22:00)
[2018-01-17 06:19] VITALS: TEMP 98.7
--- NOTE | 2018-01-17 08:01 | DS ---
Physical Exam: SUBJECTIVE: Patient seen and examined, denies any chest pain or shortness or breath, ambulatory at bedside, patient denies any dyspnea upon exertion. OBJECTIVE:patient is a 52 y/o male with a past medical history of hypertension, diet controlled hyperlipidemia, and renal calculi. patient reports yesterday evening he was asleep and awakened by a squeezing sensation to the left side of his chest. Patient report the chest discomfort was unresolved with movement and was persistent throughout the evening. He reports the chest discomfort was unrelieved and was intermittent. Patient denies any shortness of breath or syncopal episode. ER course was notable for: (1) troponin x 1 wnl (2) ekg nsr normal axis (3) ntg x 1 with resolution of chest discomfort Vital Signs Period Temp Pulse Resp BP Sys/Harrison Pulse Ox Last 24 Hr 97.7 F-98.7 F 64-72 16-18 124-150/69-83 95-100 PHYSICAL EXAM GENERAL: The patient is awake, alert, and fully oriented, in no acute distress. HEAD: Normal with no signs of trauma. EYES: PERRL, extraocular movements intact, sclera anicteric, conjunctiva clear. ENT: Ears normal, nares patent, oropharynx clear without exudates, moist mucous membranes. NECK: Trachea midline, full range of motion, supple. LUNGS: Breath sounds equal, clear to auscultation bilaterally, no wheezes, no crackles, no accessory muscle use. HEART: Regular rate and rhythm, S1, S2 without murmur, rub or gallop. ABDOMEN: Soft, nontender, nondistended, normoactive bowel sounds, no guarding, no rebound, no hepatosplenomegaly, no masses. EXTREMITIES: 2+ pulses, warm, well-perfused, no edema. NEUROLOGICAL: Cranial nerves II through XII grossly intact. Normal speech, gait not observed. PSYCH: Normal mood, normal affect. SKIN: Warm, dry, normal turgor, no rashes or lesions noted. LABS Laboratory Results - last 24 hr 01/15/18 01/16/18 01/17/18 07:35 19:25 01:00 Hemoglobin A1c % 6.0 Troponin I < 0.03 < 0.02 Laboratory Tests 01/15/18 01/15/18 01/15/18 01:51 07:35 13:40 Troponin I < 0.02 < 0.03 < 0.03 01/16/18 01/17/18 01/17/18 19:25 01:00 07:15 Troponin I < 0.03 < 0.02 < 0.03 CBC WBC 8.0 K/mm3 (4.0-10.0) 01/15/18 01:51 RBC 4.60 M/mm3 (4.00-5.60) 01/15/18 01:51 Hgb 15.4 GM/dL (11.7-16.9) 01/15/18 01:51 Hct 43.4 % (35.4-49) 01/15/18 01:51 MCV 94.4 fl (80-96) 01/15/18 01:51 MCH 33.6 pg (25.7-33.7) 01/15/18 01:51 MCHC 35.6 g/dl (32.0-35.9) 01/15/18 01:51 RDW 12.4 % (11.9-15.9) 01/15/18 01:51 Plt Count 293 K/MM3 (134-434) 01/15/18 01:51 MPV 7.0 fl (7.5-11.1) L 01/15/18 01:51 Neutrophils % 63.5 % (42.8-82.8) 01/15/18 01:51 Lymphocytes % 22.2 % (8-40) D 01/15/18 01:51 Monocytes % 11.6 % (3.8-10.2) H 01/15/18 01:51 Eosinophils % 1.5 % (0-4.5) D 01/15/18 01:51 Basophils % 1.2 % (0-2.0) 01/15/18 01:51 CMP Sodium 133 mmol/L (136-145) L 01/17/18 07:15 Potassium 4.1 mmol/L (3.5-5.1) 01/17/18 07:15 Chloride 104 mmol/L (98-107) 01/17/18 07:15 Carbon Dioxide 21 mmol/L (22-28) L 01/17/18 07:15 Anion Gap 8 (8-16) 01/17/18 07:15 BUN 25 mg/dl (7-18) H D 01/17/18 07:15 Creatinine 1.2 mg/dl (0.6-1.3) 01/17/18 07:15 Creat Clearance w eGFR > 60 (>60) 01/15/18 01:51 Random Glucose 116 mg/dl (74-106) H 01/17/18 07:15 Hemoglobin A1c % 6.0 % (4.8-6.0) 01/15/18 07:35 Calcium 8.8 mg/dl (8.4-10.2) 01/17/18 07:15 Phosphorus 3.4 mg/dl (2.5-4.6) 01/17/18 07:15 Magnesium 2.1 mg/dL (1.8-2.4) 01/17/18 07:15 Total Bilirubin 1.3 mg/dL (0.2-1.0) H 01/15/18 01:51 AST 32 U/L (15-37) 01/15/18 01:51 ALT 51 U/L (12-78) 01/15/18 01:51 Alkaline Phosphatase 72 U/L (45-117) 01/15/18 01:51 Creatine Kinase 84 IU/L (39-308) 01/15/18 13:40 Troponin I < 0.03 ng/ml (0.00-0.06) 01/17/18 07:15 Total Protein 8.3 g/dl (6.4-8.2) H 01/15/18 01:51 Albumin 4.1 g/dl (3.4-5.0) 01/15/18 01:51 Triglycerides 260 mg/dl (35-160) H 01/15/18 07:35 Cholesterol 197 mg/dl 01/15/18 07:35 Total LDL Cholesterol 106 mg/dl 01/15/18 07:35 HDL Cholesterol 39 mg/dl (29-89) 01/15/18 07:35 IMAGING CXR: no acute pathology ct of abd/pelvis w/oral contrast: bilateral nephrolithasis, with diffuse fatty liver infilitration, no hyrdronephrosis, no hiatal hernia echo: LV wnl myocardial perfusion scan:small mild intensity, inferior basal reversible perfusion defect, consistent with ischemia, normal EF 63% HOSPITAL COURSE: cardiovascular chest pain r/o acs -troponin x 3 wnl, d-dimmer wnl, no event on telemetry monitoring noted - chest diiscomfort unlikely acs, likely atypical chest pain syndrome, toradol x 2 with relief, stress test reviewed with Dr Aguilar (cardiology) - continue asa 81mg qd - cardiology consulted and followed hypertension - b/p at goal, continue bystolic, strict monitoring q4h hyperlipidemia - diet controlled, lipid profile noted, ct of abd notable for diffuse fatty liver infiltration, lipitor started 2) GERD - pt report a history of GERD in past, nausea and burning sensation to throat was reported on exam, patient was started on protonix. Date of Admission:01/15/18 Date of Discharge: 01/17/18 Minutes to complete discharge: 45 Discharge Summary Reason For Visit: CHEST PAIN Current Active Problems Chest pain (Acute) HTN (hypertension) (Acute) Hypertriglyceridemia (Acute) Condition: Guarded - Instructions Diet, Activity, Other Instructions: rest, do not lift more than 10lbs take indocin as needed for pain, please take indocin with food continue taking all medications as prescribed please follow up with your PCP, Dr Peters within 1 week if any new or persistent symptoms develop please return to the emergency department Referrals: Linda Peters MD [Primary Care Provider] - 2 Weeks Disposition: HOME - Home Medications Comprehensive Discharge Medication List: Ambulatory Orders Nebivolol HCl [Bystolic] 10 mg PO DAILY 01/15/18 This patient is new to me today: No Emergency Visit: Yes ED Registration Date: 01/15/18 Care time: The patient presented to the Emergency Department on the above date and was hospitalized for further evaluation of their emergent condition. Critical Care patient: No - Discharge Referral Referred to [facility] Med P.C.: No
[2018-01-17] MEDS: KETOROLAC TROMETHAMINE 30 MG/1 ML VIAL IVPUSH ONE ×2 (08:34→09:10)
[2018-01-17] MEDS: ONDANSETRON 4 MG/2 ML VIAL IVPB ONE ×2 (08:35→09:10)
--- NOTE | 2018-01-17 08:52 | PN ---
Progress Note, Physician History of Present Illness: Reports atypical chest pain worse lying down and improved sitting up, just received Toradol. - Current Medication List Current Medications: Active Medications Aspirin (Asa -) 81 mg PO DAILY [facility] Last Admin: 01/16/18 16:04 Dose: 81 mg Nebivolol (Bystolic -) 10 mg PO DAILY [facility] Last Admin: 01/16/18 16:04 Dose: 10 mg Pantoprazole Sodium (Protonix Iv) 40 mg IVPUSH DAILY [facility] Rosuvastatin Calcium (Crestor -) 20 mg PO HS [facility] Last Admin: 01/16/18 21:36 Dose: 20 mg - Objective Vital Signs: Vital Signs Temperature 98.7 F 01/17/18 06:00 Pulse Rate 72 01/17/18 06:00 Respiratory Rate 18 01/17/18 06:00 Blood Pressure 150/83 01/17/18 06:00 O2 Sat by Pulse Oximetry (%) 100 01/17/18 06:08 Constitutional: Yes: No Distress, Calm Neck: Yes: Supple Cardiovascular: Yes: Regular Rate and Rhythm Respiratory: Yes: Regular, CTA Bilaterally Gastrointestinal: Yes: Normal Bowel Sounds, Soft Edema: No Labs: CBC, BMP 01/15/18 01:51 01/15/18 01:51 INR, PTT INR 1.09 (0.82-1.09) 01/15/18 01:51 - ....Imaging EKG: Report Reviewed (EKG: NSR @ 66 min criteria [facility] Tele: NSR w/o events) Problem List - Problems (1) Hyperlipidemia Code(s): E78.5 - HYPERLIPIDEMIA, UNSPECIFIED Qualifiers: Hyperlipidemia type: pure hypercholesterolemia Qualified Code(s): E78.00 - Pure hypercholesterolemia, unspecified; E78.0 - Pure hypercholesterolemia (2) HTN (hypertension) Code(s): I10 - ESSENTIAL (PRIMARY) HYPERTENSION Qualifiers: Hypertension type: essential hypertension Qualified Code(s): I10 - Essential (primary) hypertension (3) Atypical chest pain Code(s): R07.89 - OTHER CHEST PAIN Assessment/Plan 01/15/2018 Echo: Normal biventricular size and fxn w/o sig valve abnl, no effusion 01/16/2018 ETT Myoview: Ambulated 7 min 30 sec 9.3 METS 89% MPHR shows small mild inferobasal ischemic LVEF 63% 01/17/2018 Chest CTA: No thoracic aneurysm or dissection 1. Atypical chest pain syndrome - with mildly abnormal MPI 2. Hypertension 3. Hypercholesterolemia PLAN: 1. Continue Bystolic 10 qd, Crestor 20 qd, ASA 81 qd 2. Analgesia as needed
[2018-01-17] MEDS: NEBIVOLOL 10 MG TABLET (FP) PO SCH (09:21)
[2018-01-17] MEDS: ASPIRIN 81 MG CHEWABLE TABLETS PO SCH (09:21)
[2018-01-17] MEDS ORDERED: PANTOPRAZOLE SODIUM 40 MG VIAL IVPUSH SCH (10:00)
[2018-01-17] MEDS ORDERED: INDOMETHACIN 25 MG CAPSULE PO SCH (10:00)
[2018-01-17 10:02] LABS: ANION GAP 8 (8-16); BLOOD UREA NITROGEN 25 mg/dl (7-18); CALCIUM 8.8 mg/dl (8.4-10.2); CHLORIDE 104 mmol/L (98-107); CO2 21 mmol/L (22-28); CREATININE 1.2 mg/dl (0.6-1.3); GLUCOSE,RANDOM 116 mg/dl (74-106); MAGNESIUM 2.1 mg/dL (1.8-2.4); PHOSPHOROUS 3.4 mg/dl (2.5-4.6); POTASSIUM 4.1 mmol/L (3.5-5.1); SODIUM 133 mmol/L (136-145)
[2018-01-17] MEDS ORDERED: SODIUM CHLORIDE 1,000 ML IV SCH (10:30)
--- NOTE | 2018-01-17 11:30 | EKG ---
Test Reason : Blood Pressure : / mmHG Vent. Rate : 065 BPM Atrial Rate : 065 BPM P-R Int : 164 ms QRS Dur : 088 ms QT Int : 394 ms P-R-T Axes : 035 003 009 degrees QTc Int : 409 ms NORMAL SINUS RHYTHM MINIMAL VOLTAGE CRITERIA FOR LVH, MAY BE NORMAL VARIANT BORDERLINE ECG WHEN COMPARED WITH ECG OF 15-JAN-2018 04:57, NO SIGNIFICANT CHANGE WAS FOUND Confirmed by WILLIAM TREJO, CATHI ([id number]) on 01/17/2018 11:29:29 AM Referred By: DR Ney SUTTON Confirmed By:CATHI THOMAS MD
[2018-01-17 13:58] VITALS: BP 154/85; PULSE 67
== END 2018-01-17 13:57 | disposition home or self-care (01) ==
LOC: FER 01:49 → FM/S 04:19
PROVIDERS: ADMIT Internal Medicine; ATTEND Nurse Practitioner Family
PROC: 3E0333Z Introduction of Anti-inflammatory into Peripheral Vein, Percutaneous Approach (ICD-10-PCS; principal; 2018-01-15)
PROC: 3E033NZ Introduction of Analgesics, Hypnotics, Sedatives into Peripheral Vein, Percutaneous Approach (ICD-10-PCS; 2018-01-15)
PROC: 3E033GC Introduction of Other Therapeutic Substance into Peripheral Vein, Percutaneous Approach (ICD-10-PCS; 2018-01-15)
PROC: 3E0337Z Introduction of Electrolytic and Water Balance Substance into Peripheral Vein, Percutaneous Approach (ICD-10-PCS; 2018-01-15)
DX: R07.2 Precordial pain (principal); I10 Essential (primary) hypertension; E78.5 Hyperlipidemia, unspecified; K21.9 Gastro-esophageal reflux disease without esophagitis; M10.9 Gout, unspecified; Z87.442 Personal history of urinary calculi; Z87.891 Personal history of nicotine dependence
CPT/HCPCS: 36415; 71045-TC-FY; 71275-TC; 74176-TC; 78452-TC; 80048; 80053; 80061; 82550; 83036; 83735; 84100; 84484; 85025; 85379; 85610; 93005; 93017; 93306-TC; 99283-25; A9502; G0378; J7030

== ENCOUNTER 2018-03-19 09:19 | Day surgery (SDC) | payer BC ==
[2018-03-18 15:14] VITALS: BMI 27.8
--- NOTE | 2018-03-19 07:53 | HP ---
Satellite [facility] - Chief Complaint Chief Complaint: left elbow pain/swelling - Past Medical History Allergies/Adverse Reactions: Allergies Allergy/AdvReac Type Severity Reaction Status Date / Time No Known Allergies Allergy Verified 01/15/18 01:50 Cardiovascular: Yes: HTN Renal/: Yes: Renal Calculi - Current Medications Current Medications: Home Medications Medication Instructions Recorded Nebivolol HCl [Bystolic] 10 mg PO BID 01/15/18 Oxycodone HCl/Acetaminophen 1 tab PO Q6H #20 tablet MDD 4 03/19/18 [Percocet 5-325 mg Tablet] Satellite Physical Exam - Physical Examination General Appearance: Well Nourished, Well Developed, Alert & Oriented x3 ENT: Clear Lung: Normal air movement Heart: Regular rate & rhythm Extremities: Other (left elbow- + swelling, + ttp ,nvi) Neurological: Intact, Alert, Oriented Satellite Impression/Plan - Impression/Plan Impression: left chronic olecranon bursitis and osteophyte Operative Procedure: left elbow bursectomy and excision of olecranon osteophyte Date to be Performed: 03/19/18
[2018-03-19] MEDS ORDERED: MIDAZOLAM HCL 2 MG/2 ML SINGLE DOSE VIAL ONE ×2 (11:36→12:06)
[2018-03-19] MEDS ORDERED: LACTATED RINGERS SOLUTION 1,000 ML IV SCH (12:45)
[2018-03-19] MEDS ORDERED: ONDANSETRON 4 MG/2 ML VIAL IVPUSH PRN (12:45)
[2018-03-19] MEDS ORDERED: LABETALOL HCL 5 MG/1 ML (100MG/20 ML VIAL) ONE (12:45)
[2018-03-19] MEDS ORDERED: oxyCODONE HCL 5 MG TABLET PO PRN ×2 (12:45→13:40)
--- NOTE | 2018-03-19 12:53 | OP ---
Operative Note - Note: Operative Date: 03/19/18 Pre-Operative Diagnosis: chronic left olecranon bursitis Operation: open excision of bursa and excision of osteophyte left elbow Post-Operative Diagnosis: Same as Pre-op Surgeon: Amari Wade Anesthesia: General Estimated Blood Loss (mls): 20 Operative Report Dictated: Yes
[2018-03-19] MEDS ORDERED: PROMETHAZINE HCL 25 MG/1 ML VIAL ONE (12:59)
[2018-03-19] MEDS ORDERED: KETOROLAC TROMETHAMINE 30 MG/1 ML VIAL ONE (13:08)
[2018-03-19] MEDS ORDERED: KETOROLAC TROMETHAMINE 30 MG/1 ML VIAL IVPUSH ONE (13:35)
[2018-03-19] MEDS ORDERED: ACETAMINOPHEN 325 MG TABLET (FP) PO ONE (13:35)
[2018-03-19] MEDS ORDERED: ACETAMINOPHEN 325 MG TABLET (FP) ONE (13:36)
[2018-03-19] MEDS ORDERED: PROMETHAZINE HCL 25 MG/1 ML VIAL IVPUSH ONE (13:36)
--- NOTE | 2018-03-19 14:29 | OP ---
DATE OF OPERATION: 03/19/2018 PREOPERATIVE DIAGNOSIS: Chronic gouty olecranon bursitis and osteophyte . POSTOPERATIVE DIAGNOSIS: Chronic gouty olecranon bursitis and osteophyte . PROCEDURE: Open bursectomy, debridement of gouty tissue and excision of spur tip of olecranon. SURGICAL ATTENDING: Amari Wade M.D. ANESTHESIA: General with LMA. CLOSURE: 2-0 Vicryl for periosteum and for the subcutaneous and 3-0 Monocryl subcuticular for skin with skin glue and Steri-Strips. ESTIMATED BLOOD LOSS: Negligible. COMPLICATIONS: None. CONDITION: Recovery room in stable condition. DESCRIPTION OF OPERATIVE PROCEDURE: Patient was taken to the operating room on March 19, 2018. General anesthesia with LMA was administered by the anesthesiologist. IV Kefzol was prophylactically applied to the case. The left upper extremity was prepped and draped in the usual sterile fashion. A 6 cm longitudinal incision curving medially around the olecranon was incised. Hemostasis was achieved with Bovie cautery. White gouty tissue was encountered in the bursa. All of that tissue was debrided. Thickened bursa in this area was also well debrided. Any of the white material on the olecranon was also debrided. Hemostasis was obtained. The distal tip of the olecranon was opened from its periosteum exposing a large spur, which was debrided flush with the bone and smoothened. This periosteum was then closed back against each other with 2-0 Vicryl. The incision was irrigated out with copious amounts of irrigation. The subcutaneous was closed with 2-0 Vicryl and the skin was closed with 3-0 Monocryl subcuticular with skin glue and Steri-strips. A sterile pressure dressing was applied. The patient was awakened from anesthesia and transferred to the recovery room in stable condition. No complication. Estimated blood loss negligible. Francisco DOWLING/[id number]
[2018-03-19 15:03] VITALS: PULSE 89
[2018-03-19 15:38] VITALS: BP 169/82; TEMP 98
== END 2018-03-19 15:45 | disposition home or self-care (01) ==
LOC: FASU 09:19
PROVIDERS: ATTEND Orthopaedic Surgery
PROC: 0MB40ZZ Excision of Left Elbow Bursa and Ligament, Open Approach (ICD-10-PCS; 2018-03-19)
PROC: 0MB40ZZ Excision of Left Elbow Bursa and Ligament, Open Approach (ICD-10-PCS; principal; 2018-03-19 11:47)
DX: M1A.0220 Idiopathic chronic gout, left elbow, without tophus (tophi) (principal); M25.722 Osteophyte, left elbow
CPT/HCPCS: 88305-TC; 88311-TC; 94760

== ENCOUNTER 2021-03-16 05:18 | Day surgery (SDC) | payer BC ==
[2021-03-15 11:20] VITALS: BMI 27.9
[2021-03-16] MEDS ORDERED: LIDOCAINE HCL/PF 2% SDV 5ML VIAL ONE (07:52)
[2021-03-16] MEDS ORDERED: DEXAMETHASONE SOD PHOSPHATE 4 MG/1 ML VIAL ONE ×2 (07:52→08:05)
[2021-03-16] MEDS ORDERED: ONDANSETRON 4 MG/2 ML VIAL ONE (07:52)
[2021-03-16] MEDS ORDERED: MIDAZOLAM HCL 2 MG/2 ML SINGLE DOSE VIAL ONE (07:53)
[2021-03-16] MEDS ORDERED: PROPOFOL 20 ML ONE (07:53)
[2021-03-16] MEDS ORDERED: BUPIVACAINE HCL/PF 0.5% (5MG/ML) 10 ML VIAL ONE (08:23)
[2021-03-16] MEDS ORDERED: ceFAZolin 2 GRAM PREMIX BAG IVPB ONE (08:40)
[2021-03-16] MEDS ORDERED: ceFAZolin SODIUM 1 GM VIAL ONE (08:40)
[2021-03-16] MEDS ORDERED: BUPIVACAINE HCL/PF 0.5% (5MG/ML) 10 ML VIAL NR ONE ×2 (08:47→09:09)
[2021-03-16] MEDS ORDERED: oxyCODONE HCL 5 MG TABLET PO PRN ×2 (09:31)
[2021-03-16] MEDS ORDERED: ONDANSETRON 4 MG/2 ML VIAL IVPUSH PRN (09:31)
[2021-03-16] MEDS ORDERED: LACTATED RINGERS SOLUTION 1,000 ML IV SCH (09:45)
[2021-03-16 12:22] VITALS: BP 140/81; PULSE 79; TEMP 97.8
== END 2021-03-16 12:35 | disposition home or self-care (01) ==
LOC: JASU-SURG 05:18
PROVIDERS: ATTEND Orthopaedic Surgery
PROC: 0HXBXZZ Transfer Right Upper Arm Skin, External Approach (ICD-10-PCS; 2021-03-16)
PROC: 0MB30ZZ Excision of Right Elbow Bursa and Ligament, Open Approach (ICD-10-PCS; principal; 2021-03-16 08:15)
DX: M1A.0211 Idiopathic chronic gout, right elbow, with tophus (tophi) (principal)
CPT/HCPCS: 94760

== ENCOUNTER 2021-05-13 04:08 | Day surgery (SDC) | payer BC ==
[2021-05-10 15:36] VITALS: BMI 28.8
[2021-05-13] MEDS ORDERED: LIDOCAINE HCL/PF 1% SDV 5ML VIAL ONE (07:25)
[2021-05-13] MEDS ORDERED: TRIAMCINOLONE ACET 40MG/1ML VIAL ONE (07:25)
[2021-05-13] MEDS ORDERED: BUPIVACAINE HCL/PF 0.25% (2.5MG/ML) 10 ML VIAL ONE (07:25)
[2021-05-13] MEDS ORDERED: LIDOCAINE HCL 1% PRESERVATIVE FREE - 30ML VIAL IJ ONE (10:06)
[2021-05-13] MEDS ORDERED: TRIAMCINOLONE ACET 40MG/1ML VIAL IM ONE (10:07)
[2021-05-13] MEDS ORDERED: BUPIVACAINE HCL/PF 0.5% (5MG/ML) 10 ML VIAL IJ ONE (10:08)
[2021-05-13] MEDS ORDERED: IOHEXOL 180 MG/1 ML ML IJ ONE (10:08)
[2021-05-13 11:17] VITALS: PULSE 80; TEMP 97.9
[2021-05-13 11:28] VITALS: BP 166/80
== END 2021-05-13 11:00 | disposition home or self-care (01) ==
LOC: JASU-SURG 04:08
PROVIDERS: ATTEND Pain Medicine Pain Medicine
PROC: 3E0U33Z Introduction of Anti-inflammatory into Joints, Percutaneous Approach (ICD-10-PCS; 2021-05-13)
PROC: BQ41ZZZ Ultrasonography of Left Hip (ICD-10-PCS; 2021-05-13)
PROC: 3E0U3BZ Introduction of Anesthetic Agent into Joints, Percutaneous Approach (ICD-10-PCS; principal; 2021-05-13 09:00)
DX: M16.12 Unilateral primary osteoarthritis, left hip (principal); M25.552 Pain in left hip
CPT/HCPCS: 76000-TC-FY

== ENCOUNTER 2021-08-13 00:14 | Emergency (ER) | payer BC ==
[2021-08-13] MEDS ORDERED: ONDANSETRON 4 MG/2 ML VIAL IVPB ONE (00:18)
[2021-08-13] MEDS ORDERED: morphine SULFATE IMMEDIATE RELEASE 30 MG TAB PO PRN (00:18)
[2021-08-13] MEDS ORDERED: SODIUM CHLORIDE 0.9% 500 ML INFUS.BAG IV ONE (00:18)
[2021-08-13] MEDS ORDERED: LACTULOSE 20 GM/30 ML UDC (FOR ORAL USE ONLY) PO ONE (00:19)
[2021-08-13 00:28] VITALS: BMI 28.8
[2021-08-13] MEDS ORDERED: ONDANSETRON 4 MG/2 ML VIAL ONE (00:34)
[2021-08-13] MEDS ORDERED: morphine SULFATE IMMEDIATE RELEASE 30 MG TAB ONE (00:34)
[2021-08-13] MEDS ORDERED: LACTULOSE 20 GM/30 ML UDC (FOR ORAL USE ONLY) ONE (00:34)
[2021-08-13] MEDS ORDERED: morphine SULFATE IMMEDIATE RELEASE 30 MG TAB PO ONE (00:35)
[2021-08-13] MEDS ORDERED: ACETAMINOPHEN 1000 MG/100 ML VIAL IVPB ONE (01:08)
[2021-08-13 01:13] LABS: EOS % 1.8 % (0-4.5); HEMATOCRIT 38.1 % (35.4-49); HEMOGLOBIN 13.1 GM/dL (11.7-16.9); LYMPH % 20.6 % (8-40); MCH 32.1 pg (25.7-33.7); MCHC 34.4 g/dl (32.0-35.9); MEAN CELL VOLUME 93.5 fl (80-96); MEAN PLT VOLUME 6.9 fl (7.5-11.1); MONO % 12.3 % (3.8-10.2); NEUT % 64.3 % (42.8-82.8); PLATELET COUNT 530 10^3/uL (134-434); RBC 4.07 M/mm3 (4.00-5.60); RDW 12.6 % (11.9-15.9); WHITE BLOOD COUNT 12.5 K/mm3 (4.0-10.0)
[2021-08-13] MEDS ORDERED: ACETAMINOPHEN INJECTION 100 ML IVPB ONE (01:15)
[2021-08-13 01:34] LABS: CALCIUM 9.8 mg/dL (8.5-10.1)
[2021-08-13 01:35] LABS: ALBUMIN 3.6 g/dl (3.4-5.0); BLOOD UREA NITROGEN 19.9 mg/dL (7-18)
[2021-08-13 01:38] LABS: CREATININE 1.7 mg/dL (0.55-1.3)
[2021-08-13 01:39] LABS: TOT PROT 8.2 g/dl (6.4-8.2)
[2021-08-13 01:40] LABS: BILIRUBIN,TOTAL 1.1 mg/dL (0.2-1)
[2021-08-13] MEDS ORDERED: LACTATED RINGERS SOLUTION 1000 ML INFUS.BAG IV ONE (01:43)
[2021-08-13] MEDS ORDERED: METOCLOPRAMIDE HCL INJECTION 10 MG/2 ML VIAL IVPB ONE (01:53)
[2021-08-13] MEDS ORDERED: METOCLOPRAMIDE HCL INJECTION 10 MG/2 ML VIAL ONE (01:54)
[2021-08-13 02:46] VITALS: BP 157/81; PULSE 102
[2021-08-13 11:44] LABS: PROTHROMBIN TIME (PATIENT) 13.6 SEC (10.2-13.0)
[2021-08-13 11:45] LABS: INR 1.16 (0.82-1.09)
== END 2021-08-13 03:58 | disposition home or self-care (01) ==
LOC: FER 00:14
PROC: 3E033NZ Introduction of Analgesics, Hypnotics, Sedatives into Peripheral Vein, Percutaneous Approach (ICD-10-PCS; principal; 2021-08-13)
PROC: 3E033GC Introduction of Other Therapeutic Substance into Peripheral Vein, Percutaneous Approach (ICD-10-PCS; 2021-08-13)
PROC: 3E033GC Introduction of Other Therapeutic Substance into Peripheral Vein, Percutaneous Approach (ICD-10-PCS; 2021-08-13)
DX: R06.02 Shortness of breath (principal)
CPT/HCPCS: 36415; 71275-TC; 80053; 85025; 85379; 85610; 93005; 99285-25; C9803; J0131; U0003; U0005

== ENCOUNTER 2023-01-02 06:00 | Inpatient (IN) | payer BC ==
[2022-12-29 17:03] VITALS: BMI 28.8
[2023-01-02] MEDS ORDERED: THROMBIN (BOVINE) 5,000 UNIT VIAL TP ONE ×5 (10:14→15:41)
[2023-01-02] MEDS ORDERED: GENTAMICIN SO4 80 MG/2 ML VIAL ONE (10:14)
[2023-01-02] MEDS ORDERED: VANCOMYCIN 1,000 MG VIAL (RESTRICTED TO ID ONLY) ONE ×2 (10:14→12:02)
[2023-01-02] MEDS ORDERED: BUPIVACAINE LIPOSOME/PF (EXPAREL) 266 MG/20 ML VIAL ONE (10:15)
[2023-01-02] MEDS ORDERED: BUPIVACAINE HCL/PF 0.5% (5MG/ML) 10 ML VIAL ONE (10:15)
[2023-01-02] MEDS ORDERED: LIDOCAINE 1%/EPI 1:100000 (20 ML MULTI DOSE VIAL) IJ ONE ×2 (10:49→12:02)
[2023-01-02] MEDS ORDERED: ceFAZolin SODIUM 1 GM VIAL IVPB ONE ×3 (10:50→15:02)
[2023-01-02] MEDS ORDERED: VANCOMYCIN 1 GM in D5W (PRE-DOCKED) 1,000 MG/250 ML (RESTRICTED TO ID ONLY IVPB ONE ×4 (10:51→17:31)
[2023-01-02] MEDS ORDERED: GENTAMICIN 80MG PREMIX BAG IVPB ONE ×3 (10:52→14:24)
[2023-01-02] MEDS ORDERED: HYDROGEN PEROXIDE 473 ML PO ONE ×3 (10:53→14:24)
[2023-01-02] MEDS ORDERED: PROPOFOL 20 ML ONE (11:18)
[2023-01-02] MEDS ORDERED: MIDAZOLAM HCL 2 MG/2 ML SINGLE DOSE VIAL ONE (11:18)
[2023-01-02] MEDS ORDERED: ROCURONIUM BROMIDE 50 MG/5 ML SYRINGE ONE ×2 (11:41→12:38)
[2023-01-02] MEDS ORDERED: LIDOCAINE HCL/PF 2% SDV 5ML VIAL ONE (11:41)
[2023-01-02] MEDS ORDERED: ceFAZolin SODIUM 1 GM VIAL ONE ×2 (11:53→14:47)
[2023-01-02] MEDS ORDERED: TRANEXAMIC ACID 1000 MG/10 ML VIAL ONE ×2 (12:03→16:26)
[2023-01-02] MEDS ORDERED: ePHEDrine SULFATE 50 MG/1 ML AMPULE ONE (12:10)
[2023-01-02] MEDS ORDERED: SODIUM CHLORIDE 0.9% P/F 10 ML VIAL IJ ONE ×2 (13:10→14:47)
[2023-01-02] MEDS ORDERED: BUPIVACAINE HCL/PF 0.5% (5MG/ML) 10 ML VIAL IJ ONE ×2 (14:53→17:42)
[2023-01-02] MEDS ORDERED: BUPIVACAINE LIPOSOME/PF (EXPAREL) 266 MG/20 ML VIAL NR ONE ×2 (14:53→17:42)
[2023-01-02] MEDS ORDERED: DEXAMETHASONE SOD PHOSPHATE 4 MG/1 ML VIAL ONE (16:10)
[2023-01-02] MEDS ORDERED: ONDANSETRON 4 MG/2 ML VIAL ONE ×3 (16:10→19:09)
[2023-01-02] MEDS ORDERED: oxyCODONE HCL 5 MG TABLET PO PRN ×2 (17:45)
[2023-01-02] MEDS ORDERED: LACTATED RINGERS SOLUTION 1,000 ML IV SCH (19:15)
[2023-01-02] MEDS ORDERED: ONDANSETRON 4 MG/2 ML VIAL IVPUSH PRN (19:15)
[2023-01-02] MEDS: CEFAZOLIN 1 GM in DEXTROSE 5%-WATER - 50 ML IVPB SCH (19:20)
[2023-01-02] MEDS: morphine SULFATE 4 MG/ML VIAL IVPUSH PRN (22:36)
[2023-01-02] MEDS: DOCUSATE SODIUM 100 MG CAPSULE (FP) PO SCH (22:42)
[2023-01-02] MEDS: HEPARIN NA (PORCINE) 5,000 UNITS/ML 1ML VIAL SQ SCH (22:42)
[2023-01-03] MEDS: CEFAZOLIN 1 GM in DEXTROSE 5%-WATER - 50 ML IVPB SCH ×3 (01:06→17:34)
[2023-01-03] MEDS: ONDANSETRON 4 MG/2 ML VIAL IVPUSH PRN (02:29)
[2023-01-03] MEDS: morphine SULFATE 4 MG/ML VIAL IVPUSH PRN ×5 (02:29→20:36)
[2023-01-03] MEDS: LACTATED RINGERS SOLUTION 1,000 ML/1,000 ML INFUS.BAG IV SCH ×3 (02:58→17:46)
[2023-01-03] MEDS: DOCUSATE SODIUM 100 MG CAPSULE (FP) PO SCH ×3 (05:56→21:03)
[2023-01-03] MEDS: HEPARIN NA (PORCINE) 5,000 UNITS/ML 1ML VIAL SQ SCH ×3 (05:57→21:03)
[2023-01-03 08:22] LABS: HEMOGLOBIN 9.7 GM/dL (11.7-16.9); MCH 33.2 pg (25.7-33.7); MCHC 35.9 g/dl (32.0-35.9); MEAN CELL VOLUME 92.4 fl (80-96); MEAN PLT VOLUME 7.9 fl (7.5-11.1); PLATELET COUNT 86 10^3/uL (134-434); RBC 2.92 M/mm3 (4.00-5.60); RDW 13.3 % (11.9-15.9); WHITE BLOOD COUNT 8.3 K/mm3 (4.0-10.0)
[2023-01-03 08:25] LABS: POTASSIUM 3.8 mmol/L (3.5-5.1)
[2023-01-03 08:32] LABS: CALCIUM 8.1 mg/dL (8.5-10.1)
[2023-01-03 08:33] LABS: BLOOD UREA NITROGEN 30.2 mg/dL (7-18)
[2023-01-03 08:35] LABS: CREATININE 1.7 mg/dL (0.55-1.3)
[2023-01-03] MEDS: FERROUS SO4 325 MG TABLET (FP) PO SCH (09:44)
[2023-01-03] MEDS: ALLOPURINOL 300 MG TABLET (FP) PO SCH (09:44)
[2023-01-03] MEDS: NEBIVOLOL 10 MG TABLET (FP) PO SCH (09:44)
[2023-01-03] MEDS: FOLIC ACID 1 MG TABLET (FP) PO SCH (09:45)
[2023-01-03] MEDS: diphenhydrAMINE HCL 25 MG CAPSULE (FP) PO PRN (09:45)
[2023-01-03] MEDS: ACETAMINOPHEN 1000 MG/100 ML BAG IVPB PRN ×2 (12:54→21:07)
[2023-01-03] MEDS: MELATONIN 5 MG TABLETS PO PRN (21:03)
[2023-01-04] MEDS: CEFAZOLIN 1 GM in DEXTROSE 5%-WATER - 50 ML IVPB SCH ×3 (01:08→18:08)
[2023-01-04] MEDS: morphine SULFATE 4 MG/ML VIAL IVPUSH PRN ×2 (01:14→05:51)
[2023-01-04] MEDS: ACETAMINOPHEN 1000 MG/100 ML BAG IVPB PRN ×2 (04:25→17:24)
[2023-01-04] MEDS: HEPARIN NA (PORCINE) 5,000 UNITS/ML 1ML VIAL SQ SCH ×3 (05:55→22:33)
[2023-01-04] MEDS: DOCUSATE SODIUM 100 MG CAPSULE (FP) PO SCH ×4 (05:55→23:12)
[2023-01-04] MEDS: ONDANSETRON 4 MG/2 ML VIAL IVPUSH PRN (08:06)
[2023-01-04] MEDS: FOLIC ACID 1 MG TABLET (FP) PO SCH (09:42)
[2023-01-04] MEDS: FERROUS SO4 325 MG TABLET (FP) PO SCH (09:42)
[2023-01-04] MEDS: NEBIVOLOL 10 MG TABLET (FP) PO SCH (09:42)
[2023-01-04] MEDS: ALLOPURINOL 300 MG TABLET (FP) PO SCH (09:42)
[2023-01-04] MEDS: LACTATED RINGERS SOLUTION 1,000 ML/1,000 ML INFUS.BAG IV SCH ×2 (13:43→17:45)
[2023-01-04 18:37] LABS: HEMATOCRIT 18.8 % (35.4-49); MCH 33.3 pg (25.7-33.7); MCHC 36.3 g/dl (32.0-35.9); MEAN CELL VOLUME 91.7 fl (80-96); MEAN PLT VOLUME 6.2 fl (7.5-11.1); PLATELET COUNT 186 10^3/uL (134-434); RBC 2.05 M/mm3 (4.00-5.60); RDW 13.4 % (11.9-15.9); WHITE BLOOD COUNT 7.9 K/mm3 (4.0-10.0)
[2023-01-04 18:40] LABS: HEMOGLOBIN 6.8 GM/dL (11.7-16.9)
[2023-01-04 18:55] LABS: POTASSIUM 3.1 mmol/L (3.5-5.1)
[2023-01-04 18:57] LABS: BLOOD UREA NITROGEN 15.7 mg/dL (7-18)
[2023-01-04 18:58] LABS: ALBUMIN 2.5 g/dl (3.4-5.0); MAGNESIUM 1.5 mg/dL (1.8-2.4)
[2023-01-04 19:01] LABS: CREATININE 1.4 mg/dL (0.55-1.3); PHOSPHOROUS 1.5 mg/dL (2.5-4.9)
[2023-01-04 19:02] LABS: BILIRUBIN,TOTAL 1.1 mg/dL (0.2-1); TOT PROT 5.4 g/dl (6.4-8.2)
[2023-01-04] MEDS: ACETAMINOPHEN 325 MG TABLET (FP) PO PRN (21:48)
[2023-01-04] MEDS: MELATONIN 5 MG TABLETS PO PRN (22:33)
[2023-01-05] MEDS: CEFAZOLIN 1 GM in DEXTROSE 5%-WATER - 50 ML IVPB SCH ×3 (01:34→19:00)
[2023-01-05] MEDS: HEPARIN NA (PORCINE) 5,000 UNITS/ML 1ML VIAL SQ SCH (05:53)
[2023-01-05] MEDS: DOCUSATE SODIUM 100 MG CAPSULE (FP) PO SCH (05:57)
[2023-01-05] MEDS: ACETAMINOPHEN 1000 MG/100 ML BAG IVPB PRN (08:46)
[2023-01-05 08:55] LABS: BASO % 0.2 % (0-2.0); EOS % 0.3 % (0-4.5); HEMATOCRIT 14.4 % (35.4-49); LYMPH % 7.5 % (8-40); MCH 33.5 pg (25.7-33.7); MCHC 37.1 g/dl (32.0-35.9); MEAN CELL VOLUME 90.4 fl (80-96); MEAN PLT VOLUME 7.4 fl (7.5-11.1); MONO % 6.9 % (3.8-10.2); NEUT % 85.1 % (42.8-82.8); PLATELET COUNT 230 10^3/uL (134-434); RDW 13.5 % (11.9-15.9)
[2023-01-05 09:05] LABS: POTASSIUM 3.2 mmol/L (3.5-5.1)
[2023-01-05 09:07] LABS: ALBUMIN 2.6 g/dl (3.4-5.0); CALCIUM 8.2 mg/dL (8.5-10.1)
[2023-01-05 09:08] LABS: BLOOD UREA NITROGEN 15.2 mg/dL (7-18)
[2023-01-05 09:12] LABS: BILIRUBIN,TOTAL 1.3 mg/dL (0.2-1); TOT PROT 5.9 g/dl (6.4-8.2)
[2023-01-05 09:15] LABS: HEMOGLOBIN 5.4 GM/dL (11.7-16.9)
[2023-01-05] MEDS ORDERED: POTASSIUM CHLORIDE TABS 10 MEQ TABLET.ER (FP) PO ONE (09:55)
[2023-01-05] MEDS ORDERED: PANTOPRAZOLE SODIUM 160 MG in SODIUM CHLORIDE 290 ML IVPB SCH (10:00)
[2023-01-05] MEDS: NEBIVOLOL 10 MG TABLET (FP) PO SCH (10:57)
[2023-01-05] MEDS: FOLIC ACID 1 MG TABLET (FP) PO SCH (10:57)
[2023-01-05] MEDS: FERROUS SO4 325 MG TABLET (FP) PO SCH (10:57)
[2023-01-05] MEDS ORDERED: PANTOPRAZOLE 40 MG TABLET PO ONE (11:12)
[2023-01-05] MEDS: ALLOPURINOL 300 MG TABLET (FP) PO SCH (11:19)
[2023-01-05 11:25] LABS: BASO % 0.2 % (0-2.0); EOS % 0.2 % (0-4.5); HEMATOCRIT 20.6 % (35.4-49); HEMOGLOBIN 7.4 GM/dL (11.7-16.9); LYMPH % 7.8 % (8-40); MCH 32.3 pg (25.7-33.7); MCHC 35.7 g/dl (32.0-35.9); MEAN CELL VOLUME 90.5 fl (80-96); MEAN PLT VOLUME 6.4 fl (7.5-11.1); MONO % 6.6 % (3.8-10.2); NEUT % 85.2 % (42.8-82.8); PLATELET COUNT 197 10^3/uL (134-434); RBC 2.28 M/mm3 (4.00-5.60); RDW 13.6 % (11.9-15.9); WHITE BLOOD COUNT 7.3 K/mm3 (4.0-10.0)
[2023-01-05 11:46] LABS: BILIRUBIN,DIRECT 0.4 mg/dL (0.0-0.2)
[2023-01-05] MEDS: POLYETHYLENE GLYCOL (HEALTHYLAX) 3350 17 GM PACKET PO SCH ×2 (14:09→21:41)
[2023-01-05] MEDS ORDERED: ceFAZolin SODIUM 1 GM VIAL ONE ×2 (17:28→17:32)
[2023-01-05] MEDS ORDERED: ACETAMINOPHEN 1000 MG/100 ML BAG IVPB ONE (17:38)
[2023-01-05] MEDS: LACTATED RINGERS SOLUTION 1,000 ML/1,000 ML INFUS.BAG IV SCH (19:00)
[2023-01-05 19:44] LABS: HEMATOCRIT 23.9 % (35.4-49); HEMOGLOBIN 8.7 GM/dL (11.7-16.9); MCH 32.5 pg (25.7-33.7); MCHC 36.6 g/dl (32.0-35.9); MEAN CELL VOLUME 88.8 fl (80-96); PLATELET COUNT 206 10^3/uL (134-434); RBC 2.69 M/mm3 (4.00-5.60); RDW 13.4 % (11.9-15.9); WHITE BLOOD COUNT 8.3 K/mm3 (4.0-10.0)
[2023-01-05] MEDS: ONDANSETRON 4 MG/2 ML VIAL IVPUSH PRN (21:34)
[2023-01-05] MEDS: MELATONIN 5 MG TABLETS PO PRN (21:34)
[2023-01-05] MEDS: diphenhydrAMINE HCL 25 MG CAPSULE (FP) PO PRN (21:34)
[2023-01-05 21:38] LABS: ANISOCYTOSIS 1+
[2023-01-05 21:39] LABS: PLATELET ESTIMATE ADEQUATE; TARGET CELLS 1+
[2023-01-05 22:17] LABS: EPI CELLS 5 /uL (0-25.1); HYALINE CASTS 1 /uL (0-3.1); URINE APPEARANCE CLEAR; URINE BACTERIA 3 /uL (0-1359); URINE BILIRUBIN NEGATIVE (NEGATIVE); URINE COLOR YELLOW; URINE GLUCOSE (UA) NEGATIVE (NEGATIVE); URINE KETONE 2+ (NEGATIVE); URINE LEUK ESTERASE NEGATIVE (NEGATIVE); URINE NITRITE NEGATIVE (NEGATIVE); URINE PROTEIN 1+ (NEGATIVE); URINE RBC 14 /uL (0-23.9); URINE WBC 7 /uL (0-25.8)
[2023-01-06] MEDS: CEFAZOLIN 1 GM in DEXTROSE 5%-WATER - 50 ML IVPB SCH ×3 (01:17→17:02)
[2023-01-06] MEDS: ACETAMINOPHEN 325 MG TABLET (FP) PO PRN (01:23)
[2023-01-06] MEDS: LACTATED RINGERS SOLUTION 1,000 ML/1,000 ML INFUS.BAG IV SCH ×2 (03:44→17:02)
[2023-01-06] MEDS: POLYETHYLENE GLYCOL (HEALTHYLAX) 3350 17 GM PACKET PO SCH ×3 (07:01→21:15)
[2023-01-06 07:38] LABS: INR 1.3 (0.83-1.09)
[2023-01-06 07:39] LABS: HEMATOCRIT 21.7 % (35.4-49); MCH 33.4 pg (25.7-33.7); MCHC 37.1 g/dl (32.0-35.9); MEAN CELL VOLUME 90.1 fl (80-96); MEAN PLT VOLUME 7.3 fl (7.5-11.1); PLATELET COUNT 216 10^3/uL (134-434); RBC 2.41 M/mm3 (4.00-5.60); RDW 13.4 % (11.9-15.9); WHITE BLOOD COUNT 7.2 K/mm3 (4.0-10.0)
[2023-01-06] MEDS: ALLOPURINOL 300 MG TABLET (FP) PO SCH ×2 (08:09→09:04)
[2023-01-06] MEDS: PANTOPRAZOLE 40 MG TABLET PO SCH (09:04)
[2023-01-06] MEDS: FOLIC ACID 1 MG TABLET (FP) PO SCH (09:04)
[2023-01-06] MEDS: NEBIVOLOL 10 MG TABLET (FP) PO SCH (09:04)
[2023-01-06] MEDS ORDERED: IRON SUCROSE INJECTION 200 MG in SODIUM CHLORIDE 90 ML IVPB ONE (10:00)
[2023-01-06 10:06] LABS: URINE APPEARANCE CLEAR; URINE BILIRUBIN NEGATIVE (NEGATIVE); URINE COLOR ORANGE; URINE GLUCOSE (UA) NEGATIVE (NEGATIVE); URINE KETONE 15 mg/dl (NEGATIVE); URINE PROTEIN TRACE (NEGATIVE)
[2023-01-06 10:07] LABS: URINE LEUK ESTERASE TRACE (NEGATIVE); URINE NITRITE NEGATIVE (NEGATIVE); URINE WBC 65.8 /uL (0-25.8)
[2023-01-06 10:08] LABS: EPI CELLS 31.7 /uL (0-25.1); HYALINE CASTS 1.05 /uL (0-3.1); URINE BACTERIA 10.9 /uL (0-1359)
[2023-01-06] MEDS: COLCHICINE 0.6 MG CAP PO SCH (10:54)
[2023-01-06] MEDS ORDERED: COLCHICINE 0.6 MG CAP PO ONE (11:14)
[2023-01-06] MEDS ORDERED: ACETAMINOPHEN 1000 MG/100 ML BAG IVPB PRN (11:15)
[2023-01-06] MEDS ORDERED: POTASSIUM CHLORIDE ORAL LIQUID 20 MEQ/15 ML PO ONE (12:09)
[2023-01-06] MEDS: HEPARIN NA (PORCINE) 5,000 UNITS/ML 1ML VIAL SQ SCH ×3 (13:08→21:15)
[2023-01-06 15:53] LABS: HEMATOCRIT 20.8 % (35.4-49); HEMOGLOBIN 7.4 GM/dL (11.7-16.9); MCH 32.2 pg (25.7-33.7); MCHC 35.6 g/dl (32.0-35.9); MEAN CELL VOLUME 90.4 fl (80-96); MEAN PLT VOLUME 6.4 fl (7.5-11.1); PLATELET COUNT 219 10^3/uL (134-434); RDW 13.4 % (11.9-15.9); WHITE BLOOD COUNT 6.5 K/mm3 (4.0-10.0)
[2023-01-06 16:13] LABS: MAGNESIUM 1.5 mg/dL (1.8-2.4)
[2023-01-06 16:16] LABS: URIC ACID 3.7 mg/dL (2.6-7.2)
[2023-01-06] MEDS: MELATONIN 5 MG TABLETS PO PRN (21:16)
[2023-01-07] MEDS: CEFAZOLIN 1 GM in DEXTROSE 5%-WATER - 50 ML IVPB SCH ×3 (03:04→17:17)
[2023-01-07] MEDS: POLYETHYLENE GLYCOL (HEALTHYLAX) 3350 17 GM PACKET PO SCH ×3 (06:41→22:05)
[2023-01-07] MEDS: HEPARIN NA (PORCINE) 5,000 UNITS/ML 1ML VIAL SQ SCH ×3 (06:41→22:05)
[2023-01-07] MEDS ORDERED: MAGNESIUM SULF 50% (8.12 MEQ/2 ML-1 GM VIAL) IVPB ONE (07:30)
[2023-01-07 07:50] LABS: HEMOGLOBIN 8.4 GM/dL (11.7-16.9); MCH 32.8 pg (25.7-33.7); MCHC 36.4 g/dl (32.0-35.9); MEAN CELL VOLUME 90.2 fl (80-96); PLATELET COUNT 236 10^3/uL (134-434); RBC 2.55 M/mm3 (4.00-5.60); RDW 13.5 % (11.9-15.9); WHITE BLOOD COUNT 5.1 K/mm3 (4.0-10.0)
[2023-01-07 07:58] LABS: POTASSIUM 3.7 mmol/L (3.5-5.1)
[2023-01-07 08:02] LABS: CALCIUM 7.7 mg/dL (8.5-10.1)
[2023-01-07 08:03] LABS: ALBUMIN 2.1 g/dl (3.4-5.0); BLOOD UREA NITROGEN 11.6 mg/dL (7-18)
[2023-01-07 08:05] LABS: CREATININE 0.9 mg/dL (0.55-1.3)
[2023-01-07 08:07] LABS: BILIRUBIN,TOTAL 0.8 mg/dL (0.2-1); TOT PROT 5.3 g/dl (6.4-8.2)
[2023-01-07] MEDS: NEBIVOLOL 10 MG TABLET (FP) PO SCH (09:28)
[2023-01-07] MEDS: PANTOPRAZOLE 40 MG TABLET PO SCH (09:28)
[2023-01-07] MEDS: FOLIC ACID 1 MG TABLET (FP) PO SCH (09:29)
[2023-01-07] MEDS: ALLOPURINOL 300 MG TABLET (FP) PO SCH (09:29)
[2023-01-07] MEDS: COLCHICINE 0.6 MG CAP PO SCH (09:29)
[2023-01-07] MEDS: ACETAMINOPHEN 325 MG TABLET (FP) PO PRN ×2 (09:33→17:16)
[2023-01-07] MEDS: LACTATED RINGERS SOLUTION 1,000 ML/1,000 ML INFUS.BAG IV SCH ×2 (09:39→18:11)
[2023-01-07] MEDS ORDERED: IRON SUCROSE INJECTION 200 MG in SODIUM CHLORIDE 90 ML IVPB ONE (10:00)
[2023-01-07] MEDS: INDOMETHACIN 50 MG CAPSULE PO SCH (17:16)
[2023-01-08] MEDS ORDERED: ceFAZolin SODIUM 1 GM VIAL ONE ×2 (03:25→17:35)
[2023-01-08] MEDS: CEFAZOLIN 1 GM in DEXTROSE 5%-WATER - 50 ML IVPB SCH ×3 (03:30→17:56)
[2023-01-08] MEDS: LACTATED RINGERS SOLUTION 1,000 ML/1,000 ML INFUS.BAG IV SCH ×2 (04:00→17:57)
[2023-01-08] MEDS: HEPARIN NA (PORCINE) 5,000 UNITS/ML 1ML VIAL SQ SCH ×3 (05:35→21:51)
[2023-01-08] MEDS: POLYETHYLENE GLYCOL (HEALTHYLAX) 3350 17 GM PACKET PO SCH ×3 (05:36→21:51)
[2023-01-08] MEDS: ONDANSETRON 4 MG/2 ML VIAL IVPUSH PRN (05:39)
[2023-01-08 07:53] LABS: BASO % 0.6 % (0-2.0); EOS % 4.3 % (0-4.5); HEMATOCRIT 21.8 % (35.4-49); HEMOGLOBIN 7.8 GM/dL (11.7-16.9); LYMPH % 11.8 % (8-40); MCH 32.4 pg (25.7-33.7); MCHC 35.8 g/dl (32.0-35.9); MEAN CELL VOLUME 90.5 fl (80-96); MEAN PLT VOLUME 6.5 fl (7.5-11.1); MONO % 8.6 % (3.8-10.2); NEUT % 74.7 % (42.8-82.8); PLATELET COUNT 270 10^3/uL (134-434); RBC 2.41 M/mm3 (4.00-5.60); RDW 13.5 % (11.9-15.9); WHITE BLOOD COUNT 5.2 K/mm3 (4.0-10.0)
[2023-01-08 08:00] LABS: POTASSIUM 3.6 mmol/L (3.5-5.1)
[2023-01-08] MEDS: INDOMETHACIN 50 MG CAPSULE PO SCH (08:00)
[2023-01-08 08:02] LABS: ALBUMIN 2.1 g/dl (3.4-5.0); BLOOD UREA NITROGEN 8.2 mg/dL (7-18); CALCIUM 7.6 mg/dL (8.5-10.1)
[2023-01-08 08:06] LABS: CREATININE 0.9 mg/dL (0.55-1.3)
[2023-01-08 08:07] LABS: BILIRUBIN,TOTAL 0.5 mg/dL (0.2-1); TOT PROT 5.4 g/dl (6.4-8.2)
[2023-01-08] MEDS ORDERED: MAGNESIUM HYDROX 2400MG/30ML ORAL SUSPENSION 30 ML CUP PO ONE (09:00)
[2023-01-08] MEDS ORDERED: METOCLOPRAMIDE HCL INJECTION 10 MG/2 ML VIAL IVPUSH ONE (09:00)
[2023-01-08] MEDS ORDERED: POTASSIUM CHLORIDE TABS 10 MEQ TABLET.ER (FP) PO ONE (09:00)
[2023-01-08] MEDS ORDERED: FUROSEMIDE 40 MG/4 ML INJECTABLE VIAL IVPUSH ONE ×2 (09:00→13:00)
[2023-01-08] MEDS: NEBIVOLOL 10 MG TABLET (FP) PO SCH (09:17)
[2023-01-08] MEDS: ALLOPURINOL 300 MG TABLET (FP) PO SCH (09:18)
[2023-01-08] MEDS: FOLIC ACID 1 MG TABLET (FP) PO SCH (09:19)
[2023-01-08] MEDS: PANTOPRAZOLE 40 MG TABLET PO SCH (09:19)
[2023-01-08] MEDS: COLCHICINE 0.6 MG CAP PO SCH (09:20)
[2023-01-08] MEDS ORDERED: IRON SUCROSE INJECTION 200 MG in SODIUM CHLORIDE 90 ML IVPB ONE (10:00)
[2023-01-08] MEDS: ACETAMINOPHEN 325 MG TABLET (FP) PO PRN (18:05)
[2023-01-08 19:39] LABS: HEMATOCRIT 22.6 % (35.4-49); HEMOGLOBIN 8.2 GM/dL (11.7-16.9); MCH 32.6 pg (25.7-33.7); MCHC 36.1 g/dl (32.0-35.9); MEAN CELL VOLUME 90.2 fl (80-96); MEAN PLT VOLUME 6.6 fl (7.5-11.1); PLATELET COUNT 281 10^3/uL (134-434); RDW 13.3 % (11.9-15.9); WHITE BLOOD COUNT 6.1 K/mm3 (4.0-10.0)
[2023-01-08] MEDS: MELATONIN 5 MG TABLETS PO PRN (21:52)
[2023-01-08] MEDS ORDERED: diphenhydrAMINE HCL 25 MG CAPSULE (FP) PO PRN (23:03)
[2023-01-08] MEDS ORDERED: ONDANSETRON 4 MG/2 ML VIAL IVPUSH PRN (23:03)
[2023-01-09] MEDS: ACETAMINOPHEN 325 MG TABLET (FP) PO PRN (00:48)
[2023-01-09] MEDS: LACTATED RINGERS SOLUTION 1,000 ML/1,000 ML INFUS.BAG IV SCH ×3 (00:51→17:32)
[2023-01-09] MEDS ORDERED: ceFAZolin SODIUM 1 GM VIAL ONE (02:03)
[2023-01-09] MEDS: CEFAZOLIN 1 GM in DEXTROSE 5%-WATER - 50 ML IVPB SCH ×3 (05:20→17:29)
[2023-01-09] MEDS: POLYETHYLENE GLYCOL (HEALTHYLAX) 3350 17 GM PACKET PO SCH ×3 (05:21→21:18)
[2023-01-09] MEDS: HEPARIN NA (PORCINE) 5,000 UNITS/ML 1ML VIAL SQ SCH ×3 (05:21→21:18)
[2023-01-09] MEDS: COLCHICINE 0.6 MG TAB PO SCH (09:47)
[2023-01-09] MEDS: NEBIVOLOL 10 MG TABLET (FP) PO SCH (09:47)
[2023-01-09] MEDS: ALLOPURINOL 300 MG TABLET (FP) PO SCH (09:47)
[2023-01-09] MEDS: PANTOPRAZOLE 40 MG TABLET PO SCH (09:47)
[2023-01-09] MEDS: FOLIC ACID 1 MG TABLET (FP) PO SCH (09:47)
[2023-01-09] MEDS: FERROUS SO4 325 MG TABLET (FP) PO SCH (09:48)
[2023-01-09 11:29] LABS: HEMATOCRIT 25.5 % (35.4-49); HEMOGLOBIN 9.1 GM/dL (11.7-16.9); MCH 32.4 pg (25.7-33.7); MCHC 35.8 g/dl (32.0-35.9); MEAN CELL VOLUME 90.5 fl (80-96); MEAN PLT VOLUME 6.5 fl (7.5-11.1); PLATELET COUNT 318 10^3/uL (134-434); RBC 2.82 M/mm3 (4.00-5.60); RDW 13.7 % (11.9-15.9); WHITE BLOOD COUNT 7.4 K/mm3 (4.0-10.0)
[2023-01-09 11:52] LABS: POTASSIUM 3.5 mmol/L (3.5-5.1)
[2023-01-09 12:07] LABS: CALCIUM 7.9 mg/dL (8.5-10.1)
[2023-01-09 12:08] LABS: ALBUMIN 2.3 g/dl (3.4-5.0)
[2023-01-09 12:11] LABS: CREATININE 0.9 mg/dL (0.55-1.3)
[2023-01-09 12:12] LABS: BILIRUBIN,TOTAL 2.2 mg/dL (0.2-1); TOT PROT 5.7 g/dl (6.4-8.2)
[2023-01-09] MEDS: INDOMETHACIN 50 MG CAPSULE PO PRN (12:42)
[2023-01-09 15:17] VITALS: RESP 18
[2023-01-09 18:22] LABS: PH,URINE 7.5 (5.0-8.0); URINE APPEARANCE CLEAR; URINE BILIRUBIN NEGATIVE (NEGATIVE); URINE COLOR YELLOW; URINE GLUCOSE (UA) NEGATIVE (NEGATIVE); URINE KETONE NEGATIVE (NEGATIVE); URINE LEUK ESTERASE NEGATIVE (NEGATIVE); URINE NITRITE NEGATIVE (NEGATIVE); URINE PROTEIN NEGATIVE (NEGATIVE)
[2023-01-09] MEDS: MELATONIN 5 MG TABLETS PO PRN (21:19)
[2023-01-10] MEDS: CEFAZOLIN 1 GM in DEXTROSE 5%-WATER - 50 ML IVPB SCH ×3 (01:46→17:36)
[2023-01-10] MEDS: HEPARIN NA (PORCINE) 5,000 UNITS/ML 1ML VIAL SQ SCH ×3 (05:07→21:51)
[2023-01-10] MEDS: POLYETHYLENE GLYCOL (HEALTHYLAX) 3350 17 GM PACKET PO SCH ×4 (05:07→21:51)
[2023-01-10] MEDS: FOLIC ACID 1 MG TABLET (FP) PO SCH (09:12)
[2023-01-10] MEDS: COLCHICINE 0.6 MG TAB PO SCH (09:12)
[2023-01-10] MEDS: FERROUS SO4 325 MG TABLET (FP) PO SCH (09:12)
[2023-01-10] MEDS: ALLOPURINOL 300 MG TABLET (FP) PO SCH (09:12)
[2023-01-10] MEDS: PANTOPRAZOLE 40 MG TABLET PO SCH (09:12)
[2023-01-10] MEDS: NEBIVOLOL 10 MG TABLET (FP) PO SCH (09:12)
[2023-01-10 10:36] LABS: HEMATOCRIT 25.6 % (35.4-49); HEMOGLOBIN 9.2 GM/dL (11.7-16.9); MCH 32.9 pg (25.7-33.7); MEAN CELL VOLUME 91.6 fl (80-96); MEAN PLT VOLUME 6.3 fl (7.5-11.1); PLATELET COUNT 338 10^3/uL (134-434); RBC 2.79 M/mm3 (4.00-5.60); RDW 13.8 % (11.9-15.9)
[2023-01-10 10:59] LABS: CALCIUM 8.4 mg/dL (8.5-10.1)
[2023-01-10 11:00] LABS: MAGNESIUM 1.6 mg/dL (1.8-2.4)
[2023-01-10 11:03] LABS: CREATININE 0.9 mg/dL (0.55-1.3)
[2023-01-10] MEDS: INDOMETHACIN 50 MG CAPSULE PO PRN (13:24)
[2023-01-10] MEDS: MAGNESIUM OXIDE 400 MG TABLET (FP) PO SCH (21:51)
[2023-01-10] MEDS: MELATONIN 5 MG TABLETS PO PRN (21:51)
[2023-01-11] MEDS: CEFAZOLIN 1 GM in DEXTROSE 5%-WATER - 50 ML IVPB SCH ×2 (02:09→09:11)
[2023-01-11] MEDS: ACETAMINOPHEN 325 MG TABLET (FP) PO PRN (02:09)
[2023-01-11] MEDS: POLYETHYLENE GLYCOL (HEALTHYLAX) 3350 17 GM PACKET PO SCH (06:28)
[2023-01-11] MEDS: HEPARIN NA (PORCINE) 5,000 UNITS/ML 1ML VIAL SQ SCH (06:28)
[2023-01-11] MEDS ORDERED: ceFAZolin SODIUM 1 GM VIAL ONE (09:07)
[2023-01-11] MEDS: COLCHICINE 0.6 MG TAB PO SCH (09:11)
[2023-01-11] MEDS: NEBIVOLOL 10 MG TABLET (FP) PO SCH (09:11)
[2023-01-11] MEDS: FOLIC ACID 1 MG TABLET (FP) PO SCH (09:11)
[2023-01-11] MEDS: ALLOPURINOL 300 MG TABLET (FP) PO SCH (09:11)
[2023-01-11] MEDS: FERROUS SO4 325 MG TABLET (FP) PO SCH (09:11)
[2023-01-11] MEDS: PANTOPRAZOLE 40 MG TABLET PO SCH (09:11)
[2023-01-11] MEDS: MAGNESIUM OXIDE 400 MG TABLET (FP) PO SCH (09:11)
[2023-01-11] MEDS: INDOMETHACIN 50 MG CAPSULE PO PRN (09:12)
[2023-01-11 09:56] VITALS: PULSE 90; TEMP 99.3
[2023-01-11 10:00] VITALS: BP 144/74
== END 2023-01-11 12:05 | DRG 455 ==
LOC: J2C 06:00 → J4W 21:50 → J6S 01-08 15:41
PROVIDERS: ADMIT Neurological Surgery; ATTEND Family Medicine
PROC: 0SG10AJ Fusion of 2 or more Lumbar Vertebral Joints with Interbody Fusion Device, Posterior Approach, Anterior Column, Open Approach (ICD-10-PCS; 2023-01-02)
PROC: 0SG1071 Fusion of 2 or more Lumbar Vertebral Joints with Autologous Tissue Substitute, Posterior Approach, Posterior Column, Open Approach (ICD-10-PCS; 2023-01-02)
PROC: 0SG30AJ Fusion of Lumbosacral Joint with Interbody Fusion Device, Posterior Approach, Anterior Column, Open Approach (ICD-10-PCS; 2023-01-02)
PROC: 0SG3071 Fusion of Lumbosacral Joint with Autologous Tissue Substitute, Posterior Approach, Posterior Column, Open Approach (ICD-10-PCS; 2023-01-02)
PROC: 0PB40ZZ Excision of Thoracic Vertebra, Open Approach (ICD-10-PCS; 2023-01-02)
PROC: 0QB00ZZ Excision of Lumbar Vertebra, Open Approach (ICD-10-PCS; 2023-01-02)
PROC: 00NY0ZZ Release Lumbar Spinal Cord, Open Approach (ICD-10-PCS; 2023-01-02)
PROC: 4A1004G Monitoring of Central Nervous Electrical Activity, Intraoperative, Open Approach (ICD-10-PCS; 2023-01-02)
PROC: 0RGA071 Fusion of Thoracolumbar Vertebral Joint with Autologous Tissue Substitute, Posterior Approach, Posterior Column, Open Approach (ICD-10-PCS; principal; 2023-01-02 13:00)
PROC: 30233N1 Transfusion of Nonautologous Red Blood Cells into Peripheral Vein, Percutaneous Approach (ICD-10-PCS; 2023-01-04)
DX: M47.896 Other spondylosis, lumbar region (principal); M41.86 Other forms of scoliosis, lumbar region; I10 Essential (primary) hypertension; D64.9 Anemia, unspecified; E78.5 Hyperlipidemia, unspecified; R55 Syncope and collapse; K59.00 Constipation, unspecified; M48.061 Spinal stenosis, lumbar region without neurogenic claudication; M10.9 Gout, unspecified
CPT/HCPCS: 36415; 36430; 70450-TC; 71045-TC-FY; 72131-TC; 76000-TC-FY; 80048; 80053; 81003; 82248; 82272; 82550; 82553; 82607; 82728; 82746; 83540; 83550; 83615; 83735; 84100; 84550; 85025; 85027; 85610; 86078; 86850; 86900; 86901; 86922; 87040; 87086; 88304-TC; 88311-TC; 94010; 94760; 97116-GP; 97162-GP; C1713; C1889; C9803-CS; J1644; J1756; P9058; U0003; U0005

== ENCOUNTER 2023-06-14 04:41 | Emergency (ER) | payer BC ==
[2023-06-14 04:54] VITALS: BMI 29.5
[2023-06-14] MEDS ORDERED: ASPIRIN 81 MG CHEWABLE TABLETS PO ONE (06:17)
[2023-06-14] MEDS ORDERED: FAMOTIDINE 20 MG/50 ML IVPB 20 MG/50 ML MG IVPB ONE ×2 (06:17→06:19)
[2023-06-14] MEDS ORDERED: ACETAMINOPHEN 1000 MG/100 ML BAG IVPB ONE (06:17)
[2023-06-14] MEDS ORDERED: ACETAMINOPHEN INJECTION 100 ML IVPB ONE (06:19)
[2023-06-14] MEDS ORDERED: ASPIRIN 81 MG CHEWABLE TABLETS ONE (06:19)
[2023-06-14 06:42] LABS: BASO % 1.3 % (0-2.0); EOS % 5.4 % (0-4.5); HEMOGLOBIN 13.4 GM/dL (11.7-16.9); LYMPH % 23.3 % (8-40); MCH 32.8 pg (25.7-33.7); MCHC 35.3 g/dl (32.0-35.9); MEAN CELL VOLUME 92.8 fl (80-96); MEAN PLT VOLUME 6.2 fl (7.5-11.1); MONO % 13.2 % (3.8-10.2); NEUT % 56.8 % (42.8-82.8); PLATELET COUNT 259 10^3/uL (134-434); RBC 4.09 M/mm3 (4.00-5.60); RDW 13.7 % (11.9-15.9); WHITE BLOOD COUNT 6.1 K/mm3 (4.0-10.0)
[2023-06-14 06:49] LABS: INR 1.1 (0.83-1.09); PROTHROMBIN TIME (PATIENT) 12.7 SEC (9.7-13.0)
[2023-06-14 06:52] LABS: ACTIVATED PTT 31.7 SECONDS (25.2-36.5)
[2023-06-14 06:56] LABS: POTASSIUM 4.4 mmol/L (3.5-5.1)
[2023-06-14 06:58] LABS: CALCIUM 9.1 mg/dL (8.5-10.1)
[2023-06-14 06:59] LABS: BLOOD UREA NITROGEN 20.7 mg/dL (7-18); MAGNESIUM 1.6 mg/dL (1.8-2.4)
[2023-06-14 07:02] LABS: CREATININE 1.3 mg/dL (0.55-1.3)
[2023-06-14 07:03] LABS: TOT PROT 7.8 g/dl (6.4-8.2)
[2023-06-14] MEDS ORDERED: ALBUTEROL SO4 2.5/IPRATROPIUM 0.5 INH SOL 3 ML VIAL.NEB. NEB ONE ×2 (09:11→09:51)
[2023-06-14] MEDS ORDERED: MAGNESIUM OXIDE 400 MG TABLET (FP) PO ONE (09:11)
[2023-06-14] MEDS ORDERED: MAGNESIUM OXIDE 400 MG TABLET (FP) ONE (09:51)
[2023-06-14 10:57] VITALS: BP 158/74; PULSE 89; RESP 16; TEMP 98.1
== END 2023-06-14 10:35 | disposition home or self-care (01) ==
LOC: JER 04:41
PROC: 3E033GC Introduction of Other Therapeutic Substance into Peripheral Vein, Percutaneous Approach (ICD-10-PCS; principal; 2023-06-14)
PROC: 3E033NZ Introduction of Analgesics, Hypnotics, Sedatives into Peripheral Vein, Percutaneous Approach (ICD-10-PCS; 2023-06-14)
PROC: 3E0F7GC Introduction of Other Therapeutic Substance into Respiratory Tract, Via Natural or Artificial Opening (ICD-10-PCS; 2023-06-14)
DX: R07.2 Precordial pain (principal); Z20.822 Contact with and (suspected) exposure to COVID-19
CPT/HCPCS: 0241U-QW; 36415; 71045-TC-FY; 71275-TC; 80053; 83735; 84484; 85025; 85379; 85610; 85730; 93005; 93010; 99285-25; Q9967

== ENCOUNTER 2023-06-21 23:57 | Emergency (ER) | payer BC ==
[2023-06-22 00:19] VITALS: BP 175/97; PULSE 81; RESP 18; TEMP 98.4; BMI 29.5
== END 2023-06-22 01:14 | disposition left against medical advice (07) ==
LOC: JER 23:57
DX: M54.9 Dorsalgia, unspecified (principal); I10 Essential (primary) hypertension; R10.32 Left lower quadrant pain
CPT/HCPCS: 99285-25

== ENCOUNTER 2023-06-22 01:48 | Emergency (ER) | payer BC ==
[2023-06-22 02:10] VITALS: RESP 16; TEMP 98.2; BMI 29.5
[2023-06-22 02:48] VITALS: BP 150/80; PULSE 83
== END 2023-06-22 02:57 | disposition home or self-care (01) ==
LOC: FER 01:48
DX: I10 Essential (primary) hypertension (principal); F41.9 Anxiety disorder, unspecified
CPT/HCPCS: 99282-25